=== PATIENT | female | born 1950 | race Caucasian/White ===

== ENCOUNTER → 2021-02-16 10:21 | Outpatient (CLI) | payer MEDICARE, OTHER, SELFPAY ==
[2021-02-16 11:57] LABS: Calcium 9.2 mg/dL (8.4-10.2)
== END ==
PROVIDERS: PCP Family Medicine; Referring Provider Family Medicine; Visit Provider Family Medicine
DX: M81.0 Age-related osteoporosis without current pathological fracture (principal)
CPT/HCPCS: 36415; 82310

== ENCOUNTER → 2022-09-08 16:22 | Outpatient (CLI) | payer MEDICARE, OTHER, SELFPAY ==
[2022-09-08 17:41] LABS: BUN Creatinine Ratio 15.4 (6-22); Blood Urea Nitrogen 12 mg/dL (7-17); Calcium 9.9 mg/dL (8.4-10.2); Carbon Dioxide 27 mmol/L (22-32); Chloride 100 mmol/L (98-107); Estimated Glomerular Filt Rate > 60 mL/min (>60); Glucose 104 mg/dL (80-110); HEMOLYSIS < 15 (0-50); Phosphorous 4.4 mg/dL (2.8-4.1); Potassium 4.4 mmol/L (3.4-5.1); Sodium 139 mmol/L (137-145)
[2022-09-12 07:28] LABS: Parathyroid Hormone, Intact 24 pg/mL (15-65)
[2022-09-15 15:16] LABS: Albumin 4.2 g/dL (3.5-5.0)
== END ==
PROVIDERS: PCP Student in an Organized Health Care Education/Training Program; Referring Provider Student in an Organized Health Care Education/Training Program; Visit Provider Student in an Organized Health Care Education/Training Program
DX: E83.52 Hypercalcemia (principal)
CPT/HCPCS: 36415; 80069; 82310; 83970

== ENCOUNTER → 2023-09-03 09:54 | Outpatient (CLI) | payer MEDICARE, OTHER, SELFPAY ==
[2023-09-03 13:16] LABS: Albumin 4.1 g/dL (3.5-5.0); Blood Urea Nitrogen 15 mg/dL (7-17); Calcium 9.5 mg/dL (8.4-10.2); Carbon Dioxide 27 mmol/L (22-32); Chloride 100 mmol/L (98-107); Estimated Glomerular Filt Rate > 60 mL/min (>60); Glucose 101 mg/dL (80-110); HEMOLYSIS < 15 (0-50); Phosphorous 3.6 mg/dL (2.8-4.1); Potassium 3.7 mmol/L (3.4-5.1); Sodium 135 mmol/L (137-145)
[2023-09-03 13:27] LABS: Free T4, Direct Thyroxine 1.22 ng/dL (0.78-2.19)
[2023-09-03 13:44] LABS: Thyroid Stimulating Hormone < 0.015 uIU/mL (0.47-4.68)
[2023-09-04 20:18] LABS: Vitamin D 25 Hydroxy (D3) 38.2 ng/mL (30.0-100.0)
== END ==
LOC: LAB 10:03
PROVIDERS: PCP Student in an Organized Health Care Education/Training Program; Referring Provider Student in an Organized Health Care Education/Training Program; Visit Provider Student in an Organized Health Care Education/Training Program
DX: M81.0 Age-related osteoporosis without current pathological fracture (principal); R93.89 Abnormal findings on diagnostic imaging of other specified body structures
CPT/HCPCS: 36415; 80069; 82306; 84439; 84443

== ENCOUNTER 2023-12-24 16:06 | Inpatient (IN) | payer MEDICARE, OTHER, SELFPAY ==
[2023-12-24 16:13] VITALS: BP 171/79; PULSE 79; RESP 18; TEMP 36.7; O2SAT 92; BMI 30.3
--- NOTE | 2023-12-24 17:12 | DI.RAD.S_ITS ---
PROCEDURE: XR SACRUM COCCYX MIN 2V INDICATIONS: fall TECHNIQUE: 3 views of the sacrum and coccyx acquired. COMPARISON: [facility], CR, XR LUMBAR SPINE 2-3V, 12/24/2023, 17:30. FINDINGS: Bones: Mild sacroiliac degenerative changes. No acute displaced fracture or dislocation. Soft tissues: Pelvic calcifications are probably phleboliths. L5 on S1 anterolisthesis is partially seen, probably chronic. IMPRESSION: Mild sacroiliac degenerative changes. No displaced fracture or dislocation. If there is high concern for occult injury, consider repeat radiography or cross-sectional imaging. Dictated by: Pawan Shin M.D. on 12/24/2023 at 18:16 Approved by: Pawan Shin M.D. on 12/24/2023 at 18:17
--- NOTE | 2023-12-24 17:12 | DI.RAD.S_ITS ---
PROCEDURE: XR LUMBAR SPINE 2-3V INDICATIONS: fall TECHNIQUE: 3 views of the lumbar spine were acquired. COMPARISON: [facility], CT, CT CHEST WITHOUT CONTRAST, 10/05/2022, 14:18. [facility], CR, XR LUMBAR SPINAL PUNCTURE DIAGNOSTIC, 04/19/2023, 16:33. FINDINGS: Bones: New burst fracture of the L1 vertebral body with greater than 50% height loss. Mild degenerative changes seen elsewhere. L5 on S1 anterolisthesis and possible pars defects. Soft tissues: Cholecystectomy clips. Large fecal loading. IMPRESSION: L1 burst fracture with greater 50% height loss. Likely chronic L5 on S1 anterolisthesis. Dictated by: Pawan Shin M.D. on 12/24/2023 at 18:14 Approved by: Pawan Shin M.D. on 12/24/2023 at 18:16
--- NOTE | 2023-12-24 17:17 | DI.RAD.S_ITS ---
PROCEDURE: XR CHEST 2V INDICATIONS: Possible aspiration TECHNIQUE: 2 views of the chest were acquired. COMPARISON: [facility], CR, XR CHEST 2 VIEWS, 09/22/2022, 12:13. FINDINGS: Surgical changes and devices: None. Lungs and pleura: Moderate right infrahilar opacity. Underlying fibrotic and reticular changes. No pleural effusions. Low lung volumes. Mediastinum: Cardiomediastinal contours unchanged. Bones and chest wall: Degenerative findings. IMPRESSION: Moderate right infrahilar opacity likely aspiration or infection. Underlying fibrotic and reticular changes seen in the lungs. Low lung volumes. Consider future imaging surveillance Dictated by: Pawan Shin M.D. on 12/24/2023 at 18:17 Approved by: Pawan Shin M.D. on 12/24/2023 at 18:18
--- NOTE | 2023-12-24 17:18 | DI.CT.S_ITS ---
PROCEDURE: CT HEAD/BRAIN WO CON INDICATIONS: unwitnessed fall TECHNIQUE: Noncontrast 4.5 mm thick angled axial sections acquired from the foramen magnum to the vertex, with coronal and sagittal reformats. For radiation dose reduction, the following was used: automated exposure control, adjustment of mA and/or kV according to patient size. COMPARISON: [facility], CT, CT HEAD WITHOUT CONTRAST, 06/16/2019, 15:48. FINDINGS: Image quality: Diagnostic CSF spaces: Basal cisterns are patent. Lateral ventricles are symmetric. Volume: Vascular calcifications. Periventricular white matter disease is commonly seen with chronic microangiopathy. Volume loss is present. These findings are moderate Brain: Basal ganglia and upper brainstem calcifications appear chronic. Hyperostosis versus calcified extra-axial lesion contiguous with the calvarium again seen in the left frontal region, similar to prior. No acute hemorrhage. No gross loss of krueger-white differentiation. Craniofacial structures: Empty sella incidentally noted. Right calvarial postsurgical changes. Small paranasal sinus right frontal mucous cyst. IMPRESSION: No acute intracranial abnormality. Likely nonacute findings above. Dictated by: Pawan Shin M.D. on 12/24/2023 at 17:58 Approved by: Pawan Shin M.D. on 12/24/2023 at 18:00
--- NOTE | 2023-12-24 18:16 | ED_ITS ---
HPI - Fall <Ro Welsh PA-C - Last Filed: 12/24/23 19:04> General Chief Complaint: Fall Stated Complaint: GLF last sunday back injury, no thinners Time Seen by Provider: 12/24/23 16:27 History of Present Illness HPI Narrative: 73-year-old female with a complicated past medical history including hyperparathyroidism, hypothyroidism, diabetes insipidus, adrenal insufficiency, vitamin-D osteoporosis, hypercalcemia, hypergammaglobulinumia, sarcoidosis, craniopharyngioma, status post radiation, seizures, chronic insomnia brought in by to the ED for multiple falls over the last week. Patient has suffered the 1st fall last week when she was walking without her walker from the table to the kitchen sink. This fall was witnessed, patient endorsed lower back pain after this fall. Patient has been complaining of the lower back pain for the entire last week. Patient was seen by her PCP 5 days ago, was told to seek further imaging and workup if her symptoms did not improve. Patient suffered 2 other falls in the last 2 days, 1 of which was unwitnessed. Patient was not down for more than 30 minutes after 1 of the unwitnessed falls. History was obtained from patient's , patient is able to provide little history other than that her lower back hurts. Patient's has been giving her ibuprofen and Tylenol for the back pain. Last dose of pain medication was just prior to arrival to the ED. Patient received Tylenol and ibuprofen. No fever, chills, vomiting, cough. Patient's does say that patient has frequent choking or swallowing issues when her food is not cut into small enough pieces or if she eats too fast. He does endorse that she appear to almost vomit 2 days ago but was able to swallow and prevented. He denies that she has a had aspiration or pneumonia from it. Related Data Home Medications Medication Instructions Recorded Confirmed aspirin 81 mg tablet,delayed 81 mg PO DAILY 12/14/20 12/24/23 release calcium carbonate 600 mg-vitamin cap PO BID 12/14/20 03/15/22 D3 10 mcg (400 unit) capsule pantoprazole 40 mg tablet,delayed 40 mg PO DAILY 12/14/20 12/24/23 release potassium chloride 10 mEq 10 meq PO DAILY 12/14/20 12/24/23 capsule,extended release ascorbic acid (vitamin C) 1,000 mg 500 mg PO DAILY 03/15/22 12/24/23 tablet hydrocortisone sod succinate 100 200 mg IM Q12H 03/15/22 03/15/22 mg/2 mL solution for injection desmopressin 0.1 mg tablet PO 12/24/23 desmopressin 0.2 mg tablet 0.2 mg PO 3XD 12/24/23 12/24/23 hyoscyamine sulfate 0.125 mg tablet 0.125 mg PO BID 12/24/23 12/24/23 Previous Rx's Medication Instructions Recorded hydrocortisone 10 mg tablet See Rx Instructions PO .COMPLEX 01/20/21 #225 tabs simvastatin 20 mg tablet See Rx Instructions .Route 06/15/21 .COMPLEX #90 tabs levothyroxine 75 mcg tablet See Rx Instructions .Route 07/08/21 .COMPLEX #30 tabs desmopressin 0.2 mg tablet See Rx Instructions .Route 09/19/21 .COMPLEX #270 tabs Allergies Allergy/AdvReac Type Severity Reaction Status Date / Time phenobarbital AdvReac Unknown Rash Verified 03/15/22 14:41 Review of Systems <Ro Welsh PA-C - Last Filed: 12/24/23 19:04> Review of Systems Narrative: ROS per HPI, obtained from patient's ROS Unobtainable: Unobtainable due to medical condition Patient History <Ro Welsh PA-C - Last Filed: 12/24/23 19:04> Medical History Thoracic region somatic dysfunction Cervical somatic dysfunction Stiff back Stiff neck Cranial somatic dysfunction Chronic cough (~2011) Stroke (~2014) Osteoporosis Foot pain (~2019) Measles Chicken pox Hearing loss (~1999) History of urinary incontinence (~2016) Fecal incontinence (~2018) Hemorrhoid Balance problem Hypothyroidism (acquired) (~2000) Diabetes insipidus (~1999) Nocturnal hypoxemia Sarcoidosis (~2011) Surgical History History of craniotomy Anesthesia History of parathyroidectomy (~2017) History of cholecystectomy (~2014) History of partial hysterectomy (~1972) Cataracts, bilateral (~2019) History of craniopharyngioma (~1988) Family History Father Diabetes mellitus History of heart disease Hypertension History of kidney problems Mother Cancer Mental health problem Stroke Sister Hypertension Grandmother History of heart disease Mental health problem Brother Mental health problem Social History Smoking Status: Former smoker alcohol intake: never substance use type: does not use Smoking Status: Former smoker alcohol intake frequency: other Substance Use Type: does not use Exam <Ro Welsh PA-C - Last Filed: 12/24/23 19:04> Narrative Exam Narrative: Const General:?cooperative, healthy appearing and comfortable [place] Head:?normal to inspection Ears:?hearing grossly normal bilaterally Nose:?external nose normal Face and sinus:?normal facial exam and sinuses nontender Mouth:?oral mucosae normal Throat:?posterior oropharynx normal Eyes General:?appearance normal, both eyes and all related structures Neck Neck:?normal visual inspection and no lymphadenopathy noted Resp Effort & Inspection:?normal respiratory effort Auscultation:?clear to auscultation bilaterally Cardio Rate:?regular rate Rhythm:?regular rhythm Musculoskeletal There is a abrasion, bruised to lumbar midline region. Neuro General:?patient alert, patient awake and patient oriented x3 Initial Vital Signs Initial Vital Signs: Vital Signs Temperature 98.1 F 12/24/23 16:13 Pulse Rate 79 12/24/23 16:13 Respiratory Rate 18 12/24/23 16:13 Blood Pressure 171/79 H 12/24/23 16:13 Pulse Oximetry 92 12/24/23 16:13 Oxygen Delivery Method Room Air 12/24/23 16:13 <Giovanni Sanchez DO - Last Filed: 12/25/23 00:19> Initial Vital Signs Initial Vital Signs: Vital Signs Temperature 98.1 F 12/24/23 16:13 Pulse Rate 79 12/24/23 16:13 Respiratory Rate 18 12/24/23 16:13 Blood Pressure 171/79 H 12/24/23 16:13 Pulse Oximetry 92 12/24/23 16:13 Oxygen Delivery Method Room Air 12/24/23 16:13 Course <Ro Welsh PA-C - Last Filed: 12/24/23 19:04> Orders Ordered: ED Orders 12/24/23 17:12 XR lumbar spine 2-3V Stat XR sacrum coccyx min 2V Stat 12/24/23 17:17 XR chest 2V Stat EKG-12 Lead Stat 12/24/23 17:18 CT head/brain wo con Stat 12/24/23 18:04 CBC Auto Diff [Complete Blood Count AUTO DIFF] Stat CMP [Comprehensive Metabolic Panel] Stat Lactate (Lactic Acid) Stat Lipase Stat Magnesium Stat Phosphorous Stat Troponin & CK Cardiac Panel Stat 12/24/23 18:25 Urinalysis and Microscopic Stat Urine Culture Stat 12/24/23 20:44 CT lumbar spine wo con Stat CT thoracic spine wo con Stat 12/24/23 20:45 Consult to Orthopedic Surgery Stat Acetaminophen (Acetaminophen 325 Mg Tablet) 650 mg PO Q6H PRN PRN Reason: Fever/Mild Pain (1-3) Hydrocodone Bitart/Acetaminophen (Hydrocodone/Acet 5/325 Tablet) 1 tab PO Q4H PRN PRN Reason: Pain, Moderate (4-6) Atorvastatin Calcium (Atorvastatin 20 Mg Tablet) 10 mg PO BEDTIME [facility] Calcium Carbonate (Calcium Carbonate 500 Mg Tab) 1,000 mg PO Q4HR PRN PRN Reason: Dyspepsia Enoxaparin Sodium (Enoxaparin 40 Mg/0.4 Ml Syringe) 40 mg SUBCUT DAILY [facility] Hydrocortisone (Hydrocortisone 10 Mg Tablet) 10 mg PO DAILY [facility] Hydrocortisone (Hydrocortisone 10 Mg Tablet) 5 mg PO BEDTIME [facility] Potassium Chloride 40 meq/ (Sodium Chloride) 1,020 mls @ 100 mls/hr IV CONT [facility] Levothyroxine Sodium (Levothyroxine 75 Mcg Tablet) 75 mcg PO QACBREAK [facility] Morphine Sulfate (Morphine 4 Mg/Ml Inj) 3 mg IV Q2HR [facility] Naloxone HCl (Naloxone 0.4 Mg/Ml Vial) 0.2 mg IV Q2MIN PRN PRN Reason: Opiate Reversal Non-Formulary Medication (Desmopressin) 0.2 mg PO 3XD [facility] Ondansetron HCl (Ondansetron 4 Mg/2 Ml Inj) 4 mg IV Q8HR PRN PRN Reason: Nausea And Vomiting Pantoprazole Sodium (Pantoprazole Dr 20 Mg Tablet) 20 mg PO 0600 [place] Pantoprazole Sodium (Pantoprazole Dr 40 Mg Tablet) 40 mg PO DAILY [facility] Potassium Chloride (Potassium Chloride 10 Meq Tab) 10 meq PO DAILY [facility] Sennosides (Sennosides 8.6 Mg Tablet) 17.2 mg PO BEDTIME M[facility] Vital Signs Vital signs: Vital Signs - 8 hr 12/24/23 19:16 Temperature 98.1 F Pulse Rate 72 Respiratory Rate 18 Blood Pressure 172/83 H Pulse Oximetry 95 Oxygen Delivery Method Room Air <Giovanni Sanchez, - Last Filed: 12/25/23 00:19> Orders Ordered: ED Orders 12/24/23 17:12 XR lumbar spine 2-3V Stat XR sacrum coccyx min 2V Stat 12/24/23 17:17 XR chest 2V Stat EKG-12 Lead Stat 12/24/23 17:18 CT head/brain wo con Stat 12/24/23 18:04 CBC Auto Diff [Complete Blood Count AUTO DIFF] Stat CMP [Comprehensive Metabolic Panel] Stat Lactate (Lactic Acid) Stat Lipase Stat Magnesium Stat Phosphorous Stat Troponin & CK Cardiac Panel Stat 12/24/23 18:25 Urinalysis and Microscopic Stat Urine Culture Stat 12/24/23 20:44 CT lumbar spine wo con Stat CT thoracic spine wo con Stat 12/24/23 20:45 Consult to Orthopedic Surgery Stat Acetaminophen (Acetaminophen 325 Mg Tablet) 650 mg PO Q6H PRN PRN Reason: Fever/Mild Pain (1-3) Hydrocodone Bitart/Acetaminophen (Hydrocodone/Acet 5/325 Tablet) 1 tab PO Q4H PRN PRN Reason: Pain, Moderate (4-6) Atorvastatin Calcium (Atorvastatin 20 Mg Tablet) 10 mg PO BEDTIME [facility] Calcium Carbonate (Calcium Carbonate 500 Mg Tab) 1,000 mg PO Q4HR PRN PRN Reason: Dyspepsia Enoxaparin Sodium (Enoxaparin 40 Mg/0.4 Ml Syringe) 40 mg SUBCUT DAILY [facility] Hydrocortisone (Hydrocortisone 10 Mg Tablet) 10 mg PO DAILY [facility] Hydrocortisone (Hydrocortisone 10 Mg Tablet) 5 mg PO BEDTIME [facility] Potassium Chloride 40 meq/ (Sodium Chloride) 1,020 mls @ 100 mls/hr IV CONT [facility] Levothyroxine Sodium (Levothyroxine 75 Mcg Tablet) 75 mcg PO QACBREAK [facility] Morphine Sulfate (Morphine 4 Mg/Ml Inj) 3 mg IV Q2HR [facility] Naloxone HCl (Naloxone 0.4 Mg/Ml Vial) 0.2 mg IV Q2MIN PRN PRN Reason: Opiate Reversal Non-Formulary Medication (Desmopressin) 0.2 mg PO 3XD [facility] Ondansetron HCl (Ondansetron 4 Mg/2 Ml Inj) 4 mg IV Q8HR PRN PRN Reason: Nausea And Vomiting Pantoprazole Sodium (Pantoprazole Dr 20 Mg Tablet) 20 mg PO 0600 [facility] Pantoprazole Sodium (Pantoprazole Dr 40 Mg Tablet) 40 mg PO DAILY [facility] Potassium Chloride (Potassium Chloride 10 Meq Tab) 10 meq PO DAILY [facility] Sennosides (Sennosides 8.6 Mg Tablet) 17.2 mg PO BEDTIME [facility] Vital Signs Vital signs: Vital Signs - 8 hr 12/24/23 19:16 Temperature 98.1 F Pulse Rate 72 Respiratory Rate 18 Blood Pressure 172/83 H Pulse Oximetry 95 Oxygen Delivery Method Room Air MDM - Fall <Ro Welsh PA-C - Last Filed: 12/24/23 19:04> Lab Data 12/24/23 18:04 12/24/23 18:04 Labs: Lab Results 12/24/23 12/24/23 Range/Units 18:04 18:25 WBC 9.7 (4.5-11.0) X10^3/uL RBC 3.95 L (4.0-5.2) X10^6/uL Hgb 12.8 (12.0-16.0) g/dL Hct 37.5 (36-46) % MCV 94.9 (80-100) fL MCH 32.4 (26-34) PG MCHC 34.2 (30-36) % RDW 13.1 (11.6-14.8) % Plt Count 251 (150-400) X10^3/uL Neut % (Auto) 72.6 (50-75) % Lymph % (Auto) 15.4 L (25-40) % [place] % (Auto) 9.6 (3-14) % Eos % (Auto) 1.5 L (2-4) % Baso % (Auto) 0.9 (0-2) % Neut # (Auto) 7000 (9080-8008) /uL Lymph # (Auto) 1500 (9213-3594) /uL [place] # (Auto) 900 (0-900) /uL Eos # (Auto) 100 (0-450) /uL Baso # (Auto) 100 (0-100) /uL Sodium 129 L (137-145) mmol/L Potassium 4.6 (3.4-5.1) mmol/L Chloride 99 (98-107) mmol/L Carbon Dioxide 24 (22-32) mmol/L BUN 17 (7-17) mg/dL Creatinine 0.72 (0.52-1.04) mg/dL Estimated GFR > 60 (>60) mL/min BUN/Creatinine Ratio 23.6 H (6-22) Glucose 109 (80-110) mg/dL Lactate 0.9 (0.7-2.1) mmol/L Calcium 9.1 (8.4-10.2) mg/dL Phosphorus 3.3 (2.8-4.1) mg/dL Magnesium 2.1 (1.6-2.3) mg/dL Total Bilirubin 1.0 (0.2-1.3) mg/dL AST 31 (14-36) IU/L ALT 15 (<35) IU/L Alkaline Phosphatase 53 (38-126) U/L Total Creatine Kinase 61 (30-135) U/L Troponin I < 0.012 (0.01-0.034) ng/mL Total Protein 6.9 (6.3-8.2) g/dL Albumin 4.1 (3.5-5.0) g/dL Globulin 2.8 (1.7-4.1) g/dL Albumin/Globulin Ratio 1.5 (1.0-2.8) Lipase 106 (23-300) U/L Urine Color Yellow Urine Appearance Sl cloudy Urine pH 6.0 (4.5-8.0) Ur Specific [place] 1.025 (1.000-1.035) Urine Protein Negative (Negative) Urine Glucose (UA) Negative (Negative) g/dL Urine Ketones Trace H (NEGATIVE) Urine Occult Blood Negative (Negative) Urine Nitrate Negative (Negative) Urine Bilirubin Negative (NEGATIVE) Urine Urobilinogen 0.2 (0.2) E.U./dL Ur Leukocyte Esterase Negative (NEGATIVE) Urine RBC None seen (0-5/HPF) Urine WBC 1-5/hpf (0-5/HPF) Ur Squamous Epith Cells 5-10 /hpf H (0-5/HPF) Ur Transition Epith Cell 1-5/hpf (0-5/HPF) Ur Renal Epithelial Cell 0-1/hpf (0-1/HPF) Urine Bacteria Occasional (0-1) (None) Ur Culture Indicated? Specimen cultured Vol Urine Centrifuged 10ml (spun) MDM Narrative Medical decision making narrative: 73-year-old female with a complicated past medical history including hyperparathyroidism, hypothyroidism, diabetes insipidus, adrenal insufficiency, vitamin-D osteoporosis, hypercalcemia, hypergammaglobulinumia, sarcoidosis, craniopharyngioma, status post radiation, seizures, chronic insomnia brought in by to the ED for multiple falls over the last week. Given patient's complicated medical history and increase in frequency of falls, will workup for organic causes. Will obtain EKG, chest x-ray, troponin, labs, UA, CT head, lumbar and sacrum/coccyx x-ray. Will reassess. X-ray shows L1 burst fracture with greater than 50% height loss. From discussion with the radiologist over the phone, it appears that the fracture is most likely acute, given that a prior did not have the fracture. Chest x-ray shows a moderate right infrahilar opacity likely aspiration or infection. Labs with low-sodium at 129. labs otherwise WNL. Urine is still pending. Patient will likely need admission. Patient is handed off to Dr. Sanchez at this time. <Giovanni Sanchez, DO - Last Filed: 12/25/23 00:19> Lab Data Labs: Lab Results 12/24/23 12/24/23 Range/Units 18:04 18:25 WBC 9.7 (4.5-11.0) X10^3/uL RBC 3.95 L (4.0-5.2) X10^6/uL Hgb 12.8 (12.0-16.0) g/dL Hct 37.5 (36-46) % MCV 94.9 (80-100) fL MCH 32.4 (26-34) PG MCHC 34.2 (30-36) % RDW 13.1 (11.6-14.8) % Plt Count 251 (150-400) X10^3/uL Neut % (Auto) 72.6 (50-75) % Lymph % (Auto) 15.4 L (25-40) % [place] % (Auto) 9.6 (3-14) % Eos % (Auto) 1.5 L (2-4) % Baso % (Auto) 0.9 (0-2) % Neut # (Auto) 7000 (1796-2351) /uL Lymph # (Auto) 1500 (2853-5408) /uL [place] # (Auto) 900 (0-900) /uL Eos # (Auto) 100 (0-450) /uL Baso # (Auto) 100 (0-100) /uL Sodium 129 L (137-145) mmol/L Potassium 4.6 (3.4-5.1) mmol/L Chloride 99 (98-107) mmol/L Carbon Dioxide 24 (22-32) mmol/L BUN 17 (7-17) mg/dL Creatinine 0.72 (0.52-1.04) mg/dL Estimated GFR > 60 (>60) mL/min BUN/Creatinine Ratio 23.6 H (6-22) Glucose 109 (80-110) mg/dL Lactate 0.9 (0.7-2.1) mmol/L Calcium 9.1 (8.4-10.2) mg/dL Phosphorus 3.3 (2.8-4.1) mg/dL Magnesium 2.1 (1.6-2.3) mg/dL Total Bilirubin 1.0 (0.2-1.3) mg/dL AST 31 (14-36) IU/L ALT 15 (<35) IU/L Alkaline Phosphatase 53 (38-126) U/L Total Creatine Kinase 61 (30-135) U/L Troponin I < 0.012 (0.01-0.034) ng/mL Total Protein 6.9 (6.3-8.2) g/dL Albumin 4.1 (3.5-5.0) g/dL Globulin 2.8 (1.7-4.1) g/dL Albumin/Globulin Ratio 1.5 (1.0-2.8) Lipase 106 (23-300) U/L Urine Color Yellow Urine Appearance Sl cloudy Urine pH 6.0 (4.5-8.0) Ur Specific [place] 1.025 (1.000-1.035) Urine Protein Negative (Negative) Urine Glucose (UA) Negative (Negative) g/dL Urine Ketones Trace H (NEGATIVE) Urine Occult Blood Negative (Negative) Urine Nitrate Negative (Negative) Urine Bilirubin Negative (NEGATIVE) Urine Urobilinogen 0.2 (0.2) E.U./dL Ur Leukocyte Esterase Negative (NEGATIVE) Urine RBC None seen (0-5/HPF) Urine WBC 1-5/hpf (0-5/HPF) Ur Squamous Epith Cells 5-10 /hpf H (0-5/HPF) Ur Transition Epith Cell 1-5/hpf (0-5/HPF) Ur Renal Epithelial Cell 0-1/hpf (0-1/HPF) Urine Bacteria Occasional (0-1) (None) Ur Culture Indicated? Specimen cultured Vol Urine Centrifuged 10ml (spun) MDM Narrative Medical decision making narrative: 73-year-old female with a complicated past medical history including hyperparathyroidism, hypothyroidism, diabetes insipidus, adrenal insufficiency, vitamin-D osteoporosis, hypercalcemia, hypergammaglobulinumia, sarcoidosis, craniopharyngioma, status post radiation, seizures, chronic insomnia brought in by to the ED for multiple falls over the last week. Given patient's complicated medical history and increase in frequency of falls, will workup for organic causes. Will obtain EKG, chest x-ray, troponin, labs, UA, CT head, lumbar and sacrum/coccyx x-ray. Will reassess. X-ray shows L1 burst fracture with greater than 50% height loss. From discussion with the radiologist over the phone, it appears that the fracture is most likely acute, given that a prior did not have the fracture. Chest x-ray shows a moderate right infrahilar opacity likely aspiration or infection. Labs with low-sodium at 129. labs otherwise WNL. Urine is still pending. Patient will likely need admission. Patient is handed off to Dr. Sanchez at this time. Dr sanchez: Received turned over. Review patient's history and physical. Patient does have an L1 burst fracture and she is tender over this area. Patient had a difficult time walking around because of back discomfort. She has no focal neurologic deficits noted in her lower extremities. Discussed the case with Dr. Mendoza who recommended CT scan of the thoracic lumbar spine which was ordered. Will admit to the hospital for further evaluation and treatment. Chest x-ray also shows some concern for aspiration. This may not necessarily be new findings per family at bedside. She has not hypoxic. Discussed the case with Dr. Nguyen who is the hospitalist on-call who will admit. Discussed the need for admission with the patient's family. They expressed understanding and agreement Discharge Plan Departure Patient Disposition: Admitted as Observation Clinical Impression: Closed L1 vertebral fracture Admit Date/Time: 12/24/23 21:15 Admit Provider: Giovanni Nguyen
[2023-12-24 18:17] LABS: Add Manual Diff / Slide Review NO; Basophils Absolute Auto 100 /uL (0-100); Basophils Percent Auto 0.9 % (0-2); Eosinophils Absolute Auto 100 /uL (0-450); Eosinophils Percent Auto 1.5 % (2-4); Hematocrit 37.5 % (36-46); Hemoglobin 12.8 g/dL (12.0-16.0); Lymphocytes Absolute Auto 1500 /uL (1100-4500); Lymphocytes Percent Auto 15.4 % (25-40); Mean Corpuscular HGB Conc 34.2 % (30-36); Mean Corpuscular Hemoglobin 32.4 PG (26-34); Mean Corpuscular Volume 94.9 fL (80-100); Monocytes Absolute Auto 900 /uL (0-900); Monocytes Percent Auto 9.6 % (3-14); Neutrophils Absolute Auto 7000 /uL (1500-7000); Neutrophils Percent Auto 72.6 % (50-75); Platelet Count 251 X10^3/uL (150-400); Red Blood Cell Count 3.95 X10^6/uL (4.0-5.2); Red Cell Distribution Width 13.1 % (11.6-14.8); White Blood Cell Count 9.7 X10^3/uL (4.5-11.0)
[2023-12-24 18:36] LABS: Lactate (Lactic Acid) 0.9 mmol/L (0.7-2.1)
[2023-12-24 18:38] LABS: Alanine Aminotransferase 15 IU/L (<35); Albumin 4.1 g/dL (3.5-5.0); Albumin Globulin Ratio 1.5 (1.0-2.8); Alkaline Phosphatase 53 U/L (38-126); Aspartate Aminotransferase 31 IU/L (14-36); BUN Creatinine Ratio 23.6 (6-22); Blood Urea Nitrogen 17 mg/dL (7-17); Calcium 9.1 mg/dL (8.4-10.2); Carbon Dioxide 24 mmol/L (22-32); Chloride 99 mmol/L (98-107); Creatine Kinase 61 U/L (30-135); Estimated Glomerular Filt Rate > 60 mL/min (>60); Globulin 2.8 g/dL (1.7-4.1); Glucose 109 mg/dL (80-110); HEMOLYSIS < 15 (0-50); Lipase 106 U/L (23-300); Magnesium 2.1 mg/dL (1.6-2.3); Potassium 4.6 mmol/L (3.4-5.1); Sodium 129 mmol/L (137-145); Total Protein 6.9 g/dL (6.3-8.2)
[2023-12-24 18:39] LABS: Phosphorous 3.3 mg/dL (2.8-4.1)
[2023-12-24 18:50] LABS: Troponin I < 0.012 ng/mL (0.01-0.034)
[2023-12-24 18:58] LABS: Appearance Urine UA SL CLOUDY; Bilirubin Urine UA NEGATIVE (NEGATIVE); Color Urine UA YELLOW; Glucose Urine UA NEGATIVE (Negative); Ketones Urine UA TRACE (NEGATIVE); Leukocyte Esterase Urine UA NEGATIVE (NEGATIVE); Nitrite Urine UA NEGATIVE (Negative); Occult Blood Urine UA NEGATIVE (Negative); Protein Urine UA NEGATIVE (Negative); Specific Gravity Urine UA 1.025 (1.000-1.035); Urobilinogen Urine UA 0.2 E.U./dL (0.2)
[2023-12-24 19:08] LABS: RBC Urine None Seen (0-5/HPF); Urine Volume 10mL (spun); WBC Urine 1-5/HPF (0-5/HPF)
[2023-12-24 19:09] LABS: Bacteria Urine Occasional (0-1); Culture Indicated Urine Specimen Cultured; Renal Epithelial Cells Urine 0-1/HPF (0-1/HPF); Squamous Epithelial Cell Urine 5-10 /HPF (0-5/HPF); Transitional Epi Cells Urine 1-5/HPF (0-5/HPF)
[2023-12-24 19:16] VITALS: BP 172/83; PULSE 72; RESP 18; TEMP 36.7; O2SAT 95
--- NOTE | 2023-12-24 20:43 | PC.NURSE ---
STUDIO TECHNICIAN note: Ambulated patient at 1999, patient got up and was able to walk to room 10, keeping her oxygen saturation at 97% on room air. She walked fine. The entire time though she kept saying I don't like walking and I don't want to walk. I tried to explain that we needed to walk. But patient wasn't happy about it. Patient was very hard of hearing and hard to follow direction because of that. Walked with walker.
--- NOTE | 2023-12-24 20:44 | DI.CT.S_ITS ---
PROCEDURE: CT LUMBAR SPINE WO CON INDICATIONS: L1 burst fracture TECHNIQUE: Noncontrast 3 mm thick sections acquired from the T12 level to the sacrum. Sagittal and coronal reformats were constructed. For radiation dose reduction, the following was used: automated exposure control. COMPARISON: [facility], CR, XR LUMBAR SPINE 2-3V, 12/24/2023, 17:30. [facility], CR, XR LUMBAR SPINAL PUNCTURE DIAGNOSTIC, 04/19/2023, 16:33. FINDINGS: Image quality: Excellent. Bones: There is a 68% compression deformity at L1. Fracture lucencies are present in the anterior middle and posterior 3rd of the vertebral body. There is appearance fracture lucency extending in to the distal aspect the right pedicle. There is mild appearance of retropulsion the posterior aspect of the superior vertebral endplate causing moderate spinal stenosis. There is also compromise of the right lateral recess secondary to fracture fragment. Grade 1/2 anterolisthesis L5 on S1 with bilateral L5 pars defect. Multilevel disc bulges are present the lumbar spine. Multilevel foraminal narrowing is present throughout the lumbar spine severe bilaterally at L5-S1 most prominent on the left with flattening of the L5 nerve roots. Multilevel facet and ligamentum flavum hypertrophy are present. Soft tissues: No retroperitoneal masses or hematomas. Visualized aorta is normal in caliber. IMPRESSION: 60% compression deformity at L1 with fracture lucencies in the anterior, middle and posterior thirds of the vertebral body. There is moderate spinal stenosis secondary to retropulsion the posterior aspect of the superior endplate as well as causing compromise of the right lateral recess. Dictated by: Kristen Davidson M.D. on 12/24/2023 at 21:29 Approved by: Kristen Davidson M.D. on 12/24/2023 at 21:36
--- NOTE | 2023-12-24 20:44 | DI.CT.S_ITS ---
PROCEDURE: CT THORACIC SPINE WO CON INDICATIONS: L1 burst fracture TECHNIQUE: Noncontrast 3 mm thick sections acquired through the region of interest in the thoracic spine. Sagittal and coronal reformats were then constructed. For radiation dose reduction, the following was used: automated exposure control. COMPARISON: [facility], CT, CT LUMBAR SPINE WO CON, 12/24/2023, 20:49. FINDINGS: Image quality: Excellent. Bones: There is normal overall bony alignment. No acute vertebral body compression fractures. No suspicious sclerotic or lytic bony lesions. Central spinal canal is of normal overall caliber. Multilevel degenerative disc space narrowing. Soft tissues: No paravertebral masses or hematomas. Visualized posteromedial lungs appear clear. Mediastinal calcified lymph nodes are present related to prior granulomatous exposure. IMPRESSION: Multilevel degenerative changes visualized fracture. Dictated by: Kristen Davidson M.D. on 12/24/2023 at 21:27 Approved by: Kristen Davidson M.D. on 12/24/2023 at 21:29
--- NOTE | 2023-12-24 20:46 | PM.PN.1 ---
Subjective Subjective Interval history: Consulted by ED this evening regarding imaging findings. Xrays demonstrate an L2 burst fracture with some retropulsion but no focal kyphosis. Per report from ED physician, patient is neuro intact without any discernable sensorimotor deficits although exam somewhat limited by altered mental status. Preliminary plan is to obtain a CT scan this evening and plan for nonoperative treatment. Patient should receive a TLSO and be made WBAT and ambulate with PT. Fine to begin PT before the brace has arrived if PT is ready to mobilize before TLSO has been fitted. Likely to be admitted to medical service. Exam Vital Signs (past 8 hours): - 12/24/23 16:13 12/24/23 19:16 Temperature 98.1 F 98.1 F Pulse Rate 79 72 Respiratory Rate 18 18 Blood Pressure 171/79 H 172/83 H Pulse Oximetry 92 95 Oxygen Delivery Method Room Air Room Air Oxygen Delivery Method Room Air Objective Labs 12/24/23 18:04 12/24/23 18:04 Labs: Laboratory Results - last 24 hr 12/24/23 12/24/23 18:04 18:25 WBC 9.7 RBC 3.95 L Hgb 12.8 Hct 37.5 MCV 94.9 MCH 32.4 MCHC 34.2 RDW 13.1 Plt Count 251 Neut % (Auto) 72.6 Lymph % (Auto) 15.4 L [place] % (Auto) 9.6 Eos % (Auto) 1.5 L Baso % (Auto) 0.9 Neut # (Auto) 7000 Lymph # (Auto) 1500 [place] # (Auto) 900 Eos # (Auto) 100 Baso # (Auto) 100 Sodium 129 L Potassium 4.6 Chloride 99 Carbon Dioxide 24 BUN 17 Creatinine 0.72 Estimated GFR > 60 BUN/Creatinine Ratio 23.6 H Glucose 109 Lactate 0.9 Calcium 9.1 Phosphorus 3.3 Magnesium 2.1 Total Bilirubin 1.0 AST 31 ALT 15 Alkaline Phosphatase 53 Total Creatine Kinase 61 Troponin I < 0.012 Total Protein 6.9 Albumin 4.1 Globulin 2.8 Albumin/Globulin Ratio 1.5 Lipase 106 Urine Color Yellow Urine Appearance Sl cloudy Urine pH 6.0 Ur Specific [place] 1.025 Urine Protein Negative Urine Glucose (UA) Negative Urine Ketones Trace H Urine Occult Blood Negative Urine Nitrate Negative Urine Bilirubin Negative Urine Urobilinogen 0.2 Ur Leukocyte Esterase Negative Urine RBC None seen Urine WBC 1-5/hpf Ur Squamous Epith Cells 5-10 /hpf H Ur Transition Epith Cell 1-5/hpf Ur Renal Epithelial Cell 0-1/hpf Urine Bacteria Occasional (0-1) Ur Culture Indicated? Specimen cultured Vol Urine Centrifuged 10ml (spun) [facility] Medical History Thoracic region somatic dysfunction Cervical somatic dysfunction Stiff back Stiff neck Cranial somatic dysfunction Chronic cough (~2011) Stroke (~2014) Osteoporosis Foot pain (~2019) Measles Chicken pox Hearing loss (~1999) History of urinary incontinence (~2016) Fecal incontinence (~2018) Hemorrhoid Balance problem Hypothyroidism (acquired) (~2000) Diabetes insipidus (~1999) Nocturnal hypoxemia Sarcoidosis (~2011) Surgical History History of craniotomy Anesthesia History of parathyroidectomy (~2017) History of cholecystectomy (~2014) History of partial hysterectomy (~1972) Cataracts, bilateral (~2019) History of craniopharyngioma (~1988) Family History Father Diabetes mellitus History of heart disease Hypertension History of kidney problems Mother Cancer Mental health problem Stroke Sister Hypertension Grandmother History of heart disease Mental health problem Brother Mental health problem Social History Smoking Status: Former smoker alcohol intake: never substance use type: does not use
--- NOTE | 2023-12-24 21:20 | PC.NURSE ---
PACKAGING DESIGNER note: Got patient up to restroom, patient was uncooperative with care. Patient back in bed.
[2023-12-24 22:00] VITALS: PULSE 65; O2SAT 94
[2023-12-24 22:30] VITALS: PULSE 64; O2SAT 93
[2023-12-24 22:54] VITALS: BP 171/82; PULSE 66; O2SAT 96
[2023-12-24 22:55] VITALS: BMI 30.3
[2023-12-24 23:00] VITALS: PULSE 63; O2SAT 93
[2023-12-25] VITALS (16 sets, daily range): BP systolic 137–179; BP diastolic 65–100; PULSE 62–79; RESP 14–19; TEMP 36.5; O2SAT 91–97; BMI 30.3
--- NOTE | 2023-12-25 00:54 | PM.HP.1 ---
History of Present Illness History of Present Illness Date Patient Seen: 12/25/23 Time Patient Seen: 00:55 Chief complaint: GLF last sunday back injury, no thinners Narrative: The pt is a debilitated 73 yo with advanced dementia and chronic back problems with multiple surgeries who fell at home today and was unable to get up off the floor so bolivar called 911 and she was brought to the ER. She states that she falls at home about weekly despite having a front wheeled walker. She states that the pain is a 10 out of 10 during my interview but denies any pain radiating to the legs, no numbness in the legs. There was no LOC, head trauma, it was reported that she has some dysphagia but it is only when swallowing pills. [facility] Medical History Thoracic region somatic dysfunction Cervical somatic dysfunction Stiff back Stiff neck Cranial somatic dysfunction Chronic cough (~2011) Stroke (~2014) Osteoporosis Foot pain (~2019) Measles Chicken pox Hearing loss (~1999) History of urinary incontinence (~2016) Fecal incontinence (~2018) Hemorrhoid Balance problem Hypothyroidism (acquired) (~2000) Diabetes insipidus (~1999) Nocturnal hypoxemia Sarcoidosis (~2011) Surgical History History of craniotomy Anesthesia History of parathyroidectomy (~2017) History of cholecystectomy (~2014) History of partial hysterectomy (~1972) Cataracts, bilateral (~2019) History of craniopharyngioma (~1988) Family History Father Diabetes mellitus History of heart disease Hypertension History of kidney problems Mother Cancer Mental health problem Stroke Sister Hypertension Grandmother History of heart disease Mental health problem Brother Mental health problem Social History Smoking Status: Former smoker alcohol intake: never substance use type: does not use Meds Home Medications and Allergies Home Medications Medication Instructions Recorded Confirmed Type aspirin 81 mg tablet,delayed 81 mg PO DAILY 12/14/20 12/24/23 History release calcium carbonate 600 mg-vitamin cap PO BID 12/14/20 03/15/22 History D3 10 mcg (400 unit) capsule pantoprazole 40 mg tablet,delayed 40 mg PO DAILY 12/14/20 12/24/23 History release potassium chloride 10 mEq 10 meq PO DAILY 12/14/20 12/24/23 History capsule,extended release hydrocortisone 10 mg tablet See Rx Instructions PO .COMPLEX 01/20/21 12/24/23 Rx #225 tabs simvastatin 20 mg tablet See Rx Instructions .Route 06/15/21 12/24/23 Rx .COMPLEX #90 tabs levothyroxine 75 mcg tablet See Rx Instructions .Route 07/08/21 12/24/23 Rx .COMPLEX #30 tabs desmopressin 0.2 mg tablet See Rx Instructions .Route 09/19/21 12/24/23 Rx .COMPLEX #270 tabs ascorbic acid (vitamin C) 1,000 mg 500 mg PO DAILY 03/15/22 12/24/23 History tablet hydrocortisone sod succinate 100 200 mg IM Q12H 03/15/22 03/15/22 History mg/2 mL solution for injection desmopressin 0.1 mg tablet PO 12/24/23 History desmopressin 0.2 mg tablet 0.2 mg PO 3XD 12/24/23 12/24/23 History hyoscyamine sulfate 0.125 mg tablet 0.125 mg PO BID 12/24/23 12/24/23 History Allergies Allergy/AdvReac Type Severity Reaction Status Date / Time phenobarbital AdvReac Unknown Rash Verified 03/15/22 14:41 Exam Vital Signs (past 8 hours): - 12/24/23 19:16 12/24/23 22:00 12/24/23 22:30 Temperature 98.1 F Pulse Rate 72 65 64 Respiratory Rate 18 Blood Pressure 172/83 H Pulse Oximetry 95 94 93 Oxygen Delivery Method Room Air Oxygen Delivery Method Room Air Const General: cooperative, disheveled and frail appearing Resp Auscultation: clear to auscultation bilaterally Cardio Rate: tachycardic Rhythm: regular rhythm Back/Spine/Pelvis Other: severe pain in lower pack, lying on side, moving legs Objective Labs 12/24/23 18:04 12/24/23 18:04 Labs: Laboratory Results - last 24 hr 12/24/23 12/24/23 18:04 18:25 WBC 9.7 RBC 3.95 L Hgb 12.8 Hct 37.5 MCV 94.9 MCH 32.4 MCHC 34.2 RDW 13.1 Plt Count 251 Neut % (Auto) 72.6 Lymph % (Auto) 15.4 L [place] % (Auto) 9.6 Eos % (Auto) 1.5 L Baso % (Auto) 0.9 Neut # (Auto) 7000 Lymph # (Auto) 1500 [place] # (Auto) 900 Eos # (Auto) 100 Baso # (Auto) 100 Sodium 129 L Potassium 4.6 Chloride 99 Carbon Dioxide 24 BUN 17 Creatinine 0.72 Estimated GFR > 60 BUN/Creatinine Ratio 23.6 H Glucose 109 Lactate 0.9 Calcium 9.1 Phosphorus 3.3 Magnesium 2.1 Total Bilirubin 1.0 AST 31 ALT 15 Alkaline Phosphatase 53 Total Creatine Kinase 61 Troponin I < 0.012 Total Protein 6.9 Albumin 4.1 Globulin 2.8 Albumin/Globulin Ratio 1.5 Lipase 106 Urine Color Yellow Urine Appearance Sl cloudy Urine pH 6.0 Ur Specific [place] 1.025 Urine Protein Negative Urine Glucose (UA) Negative Urine Ketones Trace H Urine Occult Blood Negative Urine Nitrate Negative Urine Bilirubin Negative Urine Urobilinogen 0.2 Ur Leukocyte Esterase Negative Urine RBC None seen Urine WBC 1-5/hpf Ur Squamous Epith Cells 5-10 /hpf H Ur Transition Epith Cell 1-5/hpf Ur Renal Epithelial Cell 0-1/hpf Urine Bacteria Occasional (0-1) Ur Culture Indicated? Specimen cultured Vol Urine Centrifuged 10ml (spun) Assessment & Plan Assessment and plan (1) Closed L1 vertebral fracture: Status: Acute (2) Hypothyroidism (acquired): Status: Acute (3) Hyponatremia: Status: Acute Plan I spoke with the ER provider regarding the pt's presenting symptoms and labs and agree with the admission. The ER provider contacted our ortho marketing automation analyst, Dr. Soriano who contacted Dr. Stinson, spinal surgeon who will see the pt tomorrow in consultation. PRN pain meds available, norco and morphine as well as lidoderm patch. I reviewed the CT head, and spine, showing the L1 burst fracture of the vertebra, moderate canal stenosis because of this. No surgery is scheduled at this time, TSL brace ordered, PT/OT consulted to evaluate the pt, she will need SNF likely.
[2023-12-25] MEDS: MORPHINE 4 MG/ML INJ 3 MG IV ×2 (02:05→14:32)
[2023-12-25] MEDS: SENNOSIDES 8.6 MG TABLET 17.2 MG PO ×2 (02:05→21:18)
[2023-12-25] MEDS: SODIUM CHLORIDE 0.9% 1,000 ML 100 ML IV (02:15)
--- NOTE | 2023-12-25 04:49 | PC.NURSE ---
RV DETAILER note: Patient struggles at following directions and following cues for safe movement. Patient is very hard of hearing, and then gets frustrated at staff when we try to give her instructions. Patient currently wants IV out, take it out! I told her I can't because the doctor and RN want her to keep her IV in. She rolled her eyes at me and said take it out. Told RN November.
[2023-12-25 05:06] LABS: Add Manual Diff / Slide Review NO; Basophils Absolute Auto 100 /uL (0-100); Basophils Percent Auto 0.8 % (0-2); Eosinophils Absolute Auto 400 /uL (0-450); Eosinophils Percent Auto 3.9 % (2-4); Hematocrit 34.8 % (36-46); Lymphocytes Absolute Auto 3300 /uL (1100-4500); Lymphocytes Percent Auto 35.4 % (25-40); Mean Corpuscular HGB Conc 34.4 % (30-36); Mean Corpuscular Hemoglobin 32.2 PG (26-34); Mean Corpuscular Volume 93.6 fL (80-100); Monocytes Absolute Auto 1000 /uL (0-900); Monocytes Percent Auto 10.7 % (3-14); Neutrophils Absolute Auto 4600 /uL (1500-7000); Neutrophils Percent Auto 49.2 % (50-75); Platelet Count 244 X10^3/uL (150-400); Red Blood Cell Count 3.72 X10^6/uL (4.0-5.2); Red Cell Distribution Width 13.1 % (11.6-14.8); White Blood Cell Count 9.4 X10^3/uL (4.5-11.0)
[2023-12-25 05:17] LABS: BUN Creatinine Ratio 23.7 (6-22); Blood Urea Nitrogen 14 mg/dL (7-17); Calcium 8.2 mg/dL (8.4-10.2); Carbon Dioxide 25 mmol/L (22-32); Chloride 100 mmol/L (98-107); Estimated Glomerular Filt Rate > 60 mL/min (>60); Glucose 83 mg/dL (80-110); HEMOLYSIS < 15 (0-50); Potassium 3.6 mmol/L (3.4-5.1); Sodium 130 mmol/L (137-145)
[2023-12-25] MEDS: PANTOPRAZOLE DR 20 MG TABLET PO ×3 (06:50→21:17)
--- NOTE | 2023-12-25 08:00 | PC.NURSE ---
Spoke with Dr. Ivan @0800, advised him that pharmacy just sent 1000ML bag of 0.9 NS with 40meq k+ for order that was placed @2215 last night and marked 'not given @0304. Per Dr Whitley, d/c all IV fluids.
[2023-12-25] MEDS: LEVOTHYROXINE 75 MCG TABLET PO (08:19)
[2023-12-25] MEDS: ENOXAPARIN 40 MG/0.4 ML SYRINGE SUBCUT (08:49)
[2023-12-25] MEDS: LIDOCAINE 5% PATCH 1 EACH TOP (08:49)
[2023-12-25] MEDS: SODIUM CHLORIDE 0.9% FLUSH 10 ML IV ×3 (09:24→21:48)
[2023-12-25] MEDS: POTASSIUM CHLORIDE 10 MEQ TAB PO (09:57)
[2023-12-25] MEDS: HYDROCORTISONE 10 MG TABLET PO (09:58)
--- NOTE | 2023-12-25 11:04 | ST.IPCSEOM ---
Visit Care Team Role Provider Type Nia Marcano DO Primary Care Provider Non-Staff Specialty: Internal Medicine Address: [address] [place], [address] Email: Mariusz Mendoza MD Other Providers Physician Specialty: Orthopedics Orthopedic Surgery Address: [address] [place] [address], [id number] Email: [email or web address] Giovanni Sanchez DO Emergency Provider Physician Referring Provider Specialty: Emergency Medicine Address: [address] [place] [address], [address] Email: [email or web address] Giovanni Nguyen MD Admit Provider Physician Attending Provider Specialty: Internal Medicine Address: [address] [place] [address], [facility] Fax: Email: [email or web address] Diagnoses Hypothyroidism, unspecified (12/24/23) Hypo-osmolality and hyponatremia (12/24/23) Unspecified fracture of first lumbar vertebra, initial encounter for closed fracture (12/24/23) Past Medical History (Last Reviewed 12/24/23 @ 18:25 by Ro Welsh PA-C) Balance problem (Medical) Cervical somatic dysfunction (Medical) Chicken pox (Medical) Chronic cough (Medical ~2011) Cranial somatic dysfunction (Medical) Diabetes insipidus (Medical ~1999) Fecal incontinence (Medical ~2018) Foot pain (Medical ~2019) Hearing loss (Medical ~1999) Hemorrhoid (Medical) History of urinary incontinence (Medical ~2016) Hypothyroidism (acquired) (Medical ~2000) Measles (Medical) Nocturnal hypoxemia (Medical) Osteoporosis (Medical) Sarcoidosis (Medical ~2011) Stiff back (Medical) Stiff neck (Medical) Stroke (Medical ~2014) Thoracic region somatic dysfunction (Medical) Speech-Language Pathology Swallow Evaluation INSURANCE HEALTHCARE CONSULTANT Clinical Swallow Evaluation Start: 12/25/23 10:23 Freq: Status: Active Protocol: Document 12/25/23 10:23 MA (Rec: 12/25/23 10:32 MA [id number]) Clinical Swallow Evaluation Session Time Visit Start Time 08:20 Visit Stop Time 08:50 Total Visit Minutes 30 Visit Information Visit Number Initial evaluation Referral Referring Provider Dr. Giovanni Nguyen Setting Assessment Location Acute Care Visit Type Note Type Initial evaluation Next Note Type Next Note Type Treatment Note Patient Information Identification Type Name,Wristband History Per H&P: The pt is a debilitated 73 yo with advanced dementia and chronic back problems with multiple surgeries who fell at home today and was unable to get up off the floor so bolivar called 911 and she was brought to the ER. She states that she falls at home about weekly despite having a front wheeled walker. She states that the pain is a 10 out of 10 during my interview but denies any pain radiating to the legs, no numbness in the legs. There was no LOC, head trauma, it was reported that she has some dysphagia but it is only when swallowing pills. PMHx significant for: Thoracic region somatic dysfunction Cervical somatic dysfunction Stiff back Stiff neck Cranial somatic dysfunction Chronic cough (~2011) Stroke (~2014) Osteoporosis Foot pain (~2019) Measles Chicken pox Hearing loss (~1999) History of urinary incontinence (~2016) Fecal incontinence (~2018) Hemorrhoid Balance problem Hypothyroidism (acquired) (~ 2000) Diabetes insipidus (~1999) Nocturnal hypoxemia Sarcoidosis (~2011) Chest x-ray completed 12/24/23 with the following: IMPRESSION : Moderate right infrahilar opacity likely aspiration or infection. Underlying fibrotic and reticular changes seen in the lungs. Low lung volumes. Consider future imaging surveillance Pt referred for ST evaluation d/t hx of dysphagia and chronic cough. Subjective Observations Pt sitting upright in bed with breakfast on tray table in front of her. She appeared IQUGMIUT , however able to answer simple Y/N questions with max repetition and increased volume. Pt arrived during the middle of the evaluation and reports he has to change the batteries in her hearing aids. He states she consumes regular solids and thin liquids at home, however is very impulsive and requires cues to slow down and take small bites. He reports she also takes a medication to prevent emesis during meals, which occurr about every 2-3 weeks. Reported by Patient/Caregiver Other Symptoms Coughing,Difficulty swallowing pills Current Diet Regular (IDDSI 7) Baseline Feeding Method Needs some assistance The IDDSI Framework Protocol: IDDSI.1 Objective Assessment Mental Status Alert,Cooperative,Confused, Impulsive Comment ST unable to complete formal oral motor exam given Pt with cognitive deficits and IQUGMIUT. Pt with natural dentition, fair condition. ST suspects generalized weakness and reduced ROM. Food and Liquid Trials Position During Assessment Upright (90 degrees) Liquids Trialed Thin (IDDSI 0) Solid Trials Soft & Bite-sized (IDDSI 6), Regular (IDDSI 7) Administration Type Controlled cup sip,Self- feeding Oral Impairment Moderately impaired Oral Phase Comments Pt consumed a few bites of georgian toast, breakfast sausage link and fruit consisting of cantalope, pineapple and grapes. She also consumed about 4 oz of thin water via cup. For solids, Pt demonstrated medium-large bites, prolonged mastication, impulsivity resulting in Pt putting several bites of food in her mouth at a time before swallowing the previous bite, poor bolus formation, extended ap transport. For thin liquids, Pt demonstrated good oral acceptance and containment, suspected loss of bolus resulting in premature spillage, adequate sip size and rate. Pharyngeal Impairment Mildly impaired Pharyngeal Phase Comments For solids, Pt demonstrated suspected delay in swallow, no overt s/s of aspiration. For thin liquids, Pt demonstrated suspected delay in swallow, delayed cough reflex x1. The IDDSI Framework Protocol: IDDSI.1 Findings Swallowing Function Oropharyngeal phase dysphagia Severity of Swallow Impairment Mildly-moderately impaired Contributing Factors to Swallow Reduced alertness or attention Impairment ,Difficulty following directions,Mastication inefficiency Comments Impulsive Based on Family support Impact on Safety and Functioning Risk for aspiration,Risk for inadequate nutrition/hydration Recommendations Swallowing Treatment Yes Frequency Daily while inpatient Recommended Solids Soft & Bite-sized (IDDSI 6) Recommended Liquids Thin (IDDSI 0) Other Recommendations ST recommends IDDSI 6/IDDSI 0 with the below mentioned safe swallowing strategies in place . ST to continue to assess Pt' s swallow function/diet tolerance with possible recommendation for MBS depending on ability to follow directions and sit still for xray. Safety Precautions/Swallowing 1 to 1 close supervision, Recommendations Reduce distractions,Remain upright (90 degrees) during all oral intake,Needs verbal cues to use recommended strategies,Upright position at least 30 minutes after meals, Small bites and sips when eating,Slow rate; swallow between bites,Alternate liquids and solids,Set-up assistance,Strict oral care after intake Medication Recommendations Crushed in Carrier Education Patient/Caregiver Education Described results of evaluation,Family/caregivers expressed understanding of evaluation,Family/caregivers expressed agreement with goals & treatment plans,Family/ caregivers require further education/training Goals Short-term Goals STG 1: Patient will tolerate PO trials of IDDSI 6/7 with no clinical s/s of dysphagia 100 % of the time in order to consume least restrictive diet . STG 2: Patient will tolerate thin liquids with no clinical s/s of aspiration 100% of the time in order to consume least restrictive diet. Long-term Goals LTG: Patient will tolerate safest and most efficient diet with no clinical s/s of aspiration or dysphagia 100% of the time in order to consume least restrictive diet .
--- NOTE | 2023-12-25 14:00 | PT.IIE ---
Current Diagnoses Hypothyroidism, unspecified (12/24/23) Hypo-osmolality and hyponatremia (12/24/23) Unspecified fracture of first lumbar vertebra, initial encounter for closed fracture (12/24/23) Surgical History (Last Reviewed 12/24/23 @ 18:25 by Ro Welsh PA-C) Anesthesia Cataracts, bilateral (~2019) History of cholecystectomy (~2014) History of craniopharyngioma (~1988) History of craniotomy History of parathyroidectomy (~2017) History of partial hysterectomy (~1972) Medical History (Last Reviewed 12/24/23 @ 18:25 by Ro Welsh PA-C) Balance problem Cervical somatic dysfunction Chicken pox Chronic cough (~2011) Cranial somatic dysfunction Diabetes insipidus (~1999) Fecal incontinence (~2018) Foot pain (~2019) Hearing loss (~1999) Hemorrhoid History of urinary incontinence (~2016) Hypothyroidism (acquired) (~2000) Measles Nocturnal hypoxemia Osteoporosis Sarcoidosis (~2011) Stiff back Stiff neck Stroke (~2014) Thoracic region somatic dysfunction Physical Therapy Inpatient Evaluation/Re-Eval M1 PT/OT-IP Prior Functional Status Start: 12/25/23 16:09 Freq: NEEDED Status: Active Protocol: Document 12/25/23 14:00 AB (Rec: 12/25/23 16:12 AB [id number]) Medical Review Prior Functional Status Medical History Reviewed Yes Communication able to make needs known; pt with confusion and memory issues Mobility and Gait pt stated that she was modified independent with all mobilities and ambulation using a FWW; spouse stated that pt has h/o falls Social History Household Members spouse Living Arrangements House Number of Floors (Floors) One Floor Number of Stairs To Enter/Railing? 3 steps B rails to enter the house Home Environment Standard Height Toilet,Walk in Shower,Built-In Shower Seat Home Equipment Front Wheel Walker,Manual Wheelchair,Hand Held Shower, Grab Bars Near Toilet,Grab Bars In Shower Additional Social History Comment spouse has limited ability to assist pt due to his own medical issues M2 PT-IP Current Condition Start: 12/25/23 16:09 Freq: NEEDED Status: Active Protocol: Document 12/25/23 14:00 AB (Rec: 12/25/23 16:12 AB [id number]) Physical Therapy Current Condition Current Condition Evaluation Date 12/25/23 Treatment Diagnosis s/p fall; L1 fx; difficulty in walking Onset Date 12/24/23 M3 PT-IP Subjective Start: 12/25/23 16:09 Freq: NEEDED Status: Active Protocol: Document 12/25/23 14:00 AB (Rec: 12/25/23 16:22 AB [id number]) Subjective Physical Therapy Visit Type Type Initial Evaluation Visit Start Time 14:00 Visit Stop Time 15:30 Notes pt seen for split visits: 1400 to 1420 and 1500 [id number] Number of WET END OPERATOR Visits 0 Physical Therapy Visit Comments Patient Comments pt is agreeable to do PT Therapy Pain Assessment Pain When Pain Assessed At Rest Pain Present Pain Present Pain Reported Location lower back Scale Used pain scale not stated Pain Management Techniques Distraction,Modification of Treatment,Re-positioning, Timing of Activity with Medications M4 PT-IP Mobility and Gait Start: 12/25/23 16:09 Freq: NEEDED Status: Active Protocol: Document 12/25/23 14:00 AB (Rec: 12/25/23 16:22 AB [id number]) PT-Bed Mobility Assessment Rolling Type of Rolling Log Rolling Level of Assist Maximal Assistance,1 Person Assistance Supine to Sit Supine to Sit Maximum Assistance,Head of Bed Elevated,Bedrails Sit to Supine Sit to Supine Moderate Assistance,Head of Bed Elevated,Bedrails PT-Transfer Assessment Sit to and From Stand Sit to and from Stand Moderate Assistance,2 Person Assistance,Use of Upper Extremities Equipment Transfer Assistive Device Gait Belt,Front Wheeled Walker Orthotic/Prosthetic Devices or Brace: No Transfers Transfer Destination Bed,Bedside Commode Transfer Technique Stand Step Pivot Transfer Ability Level of Assist Moderate Assistance,2 Person Assistance,Use of Upper Extremities Comments Mobility Comments pt supine in bed and still in the ER. obtained PLOF and home set up from PT. ED nurse stated that pt will be transferring to acute floor any minute after taking his medication. checked back on pt again after pt got up to acute floor. spouse now in room with pt. pt requesting to use the toilet. educated pt regarding her back precautions and log roll bed mobility. pt is impulsive and has memory issues and unable to follow her precautions. completed supine to sit max A and max cues. mod A for sitting balance. bedside commode positioned next to pt. pt completed sit to stand mod A x 2 and max cues and step transfer to bedside commode mod A x 2 and max cues using fWW. pt required assistance for hygiene care and brief management. pt completed sit to stand from the commode mod A x 2 and max cues and step transfer to EOB mod A x 2 and max cues using fWW. received order for TLSO brace for pt. Per Dr. Mendoza note: ok for pt to work with PT while waiting for TLSO. fitted pt with TLSO brace. pt stated that she wants to go back to bed due to feeling tired and unable to do further activities. completed sit to supine mod A but unable to adhere to log roll bed mobility due to impulsiveness . HOB elevated. positioned pt in bed. call light and table placed within each. spouse signed papers for TLSO brace. pt agreeable for pt to go to SNF is needed. Gait Assessment Comments Gait Comments unable at this time PT-Balance Assessment Sitting Balance and Reactions Static Sitting Balance Ability Fair Dynamic Sitting Balance Ability Fair Standing Balance and Reactions Static Standing Balance Ability Poor Dynamic Standing Balance Ability Poor Device Used FWW M5 PT-IP Objective Assessments Start: 12/25/23 16:09 Freq: NEEDED Status: Active Protocol: Document 12/25/23 14:00 AB (Rec: 12/25/23 16:23 AB [id number]) Orientation Orientation/Cognition Level of Alertness Confusional State Orientation Name,Place,Situation Safety Awareness Decreased Safety Awareness Memory Description Short Term Impaired,Alf Impaired Gross Range of Motion Lower Extremity ROM Assessment Within Functional Limits Strength Lower Extremity Strength Hip 3+/5 Knee 4-/5 Muscle Tone Muscle Tone WNL Yes Other Assessments Other Other Assessments (+) LLE tremors M6 PT-IP Treatment Start: 12/25/23 16:09 Freq: NEEDED Status: Active Protocol: Document 12/25/23 14:00 AB (Rec: 12/25/23 16:23 AB [id number]) Physical Therapy Treatment Education Education Provided Precautions,Weight Bearing Status,Safety M7 PT-IP Assessment and Plan Start: 12/25/23 16:09 Freq: NEEDED Status: Active Protocol: Document 12/25/23 14:00 AB (Rec: 12/25/23 17:09 AB [id number]) PT Summary Assessment and Plan Potential Rehabilitation Potential Fair Status of Condition at Evaluation Evolving Summary Impairments Pain,ROM,Strength,Balance, Coordination,Sensation,Tone, Cognition,Bed Mobility, Transfers,Gait,Activity Tolerance Assessment Summary pt is a 73 y/o F who presented to the ED s/p fall. pt sustained a L1 vertebral fx. TLSO ordered by ortho MD and is WBAT. provided pt with TLSO. pt requiring max A for bed mobility and mod A x 2 for transfers using FWW. pt is impulsive and has decrease safety awareness affecting mobility independence. pt has h/o falls and continues to be a high fall risk. pt will require SNF rehab to improve overall strength and mobility. Goals Bed Mobility Goal Standby Assistance Transfer Goal Standby Assistance,Front Wheeled Walker Gait Goal Standby Assistance,Front Wheel Walker Gait Distance 50 Other Goals improve ambulation using FWW ~ 150 ft SBA up/down 3 steps B rails SBA Days to Meet Goals 10 Frequency of Treatment Frequency Of Treatment Once a Day Treatment Plan Physical Therapy Treatment Plan Bed Mobility Training,Transfer Training,Gait Training, Therapeutic Exercise,Balance Retraining,Discharge Planning, Hot or Cold Pack,Neuromuscular Re-ed,Coordination Retraining ,Manual Therapy Precautions Lumbar Precautions Log Roll,No Twisting,Limit Bending,Lifting Restriction of 10 lbs Weight Bearing Status Weight Bearing Status Weight Bear as Tolerated Recommendations To Nursing Amount of Assist Needed 2 Person Assist Discharge Recommendations PT Discharge Recommendations SNF Rehab Transportation Needs at Discharge Wheelchair/Cabulance
--- NOTE | 2023-12-25 14:04 | PC.NURSE ---
Report given to Aria RN room 205
[2023-12-25] MEDS: ONDANSETRON 4 MG/2 ML INJ IV (14:05)
--- NOTE | 2023-12-25 15:33 | OT.IP.EVAL ---
Current Diagnoses Hypothyroidism, unspecified (12/24/23) Hypo-osmolality and hyponatremia (12/24/23) Unspecified fracture of first lumbar vertebra, initial encounter for closed fracture (12/24/23) Past Medical History (Last Reviewed 12/24/23 @ 18:25 by Ro Welsh PA-C) Balance problem Cervical somatic dysfunction Chicken pox Chronic cough (~2011) Cranial somatic dysfunction Diabetes insipidus (~1999) Fecal incontinence (~2018) Foot pain (~2019) Hearing loss (~1999) Hemorrhoid History of urinary incontinence (~2016) Hypothyroidism (acquired) (~2000) Measles Nocturnal hypoxemia Osteoporosis Sarcoidosis (~2011) Stiff back Stiff neck Stroke (~2014) Thoracic region somatic dysfunction Surgical History (Last Reviewed 12/24/23 @ 18:25 by Ro Welsh PA-C) Anesthesia Cataracts, bilateral (~2019) History of cholecystectomy (~2014) History of craniopharyngioma (~1988) History of craniotomy History of parathyroidectomy (~2017) History of partial hysterectomy (~1972) Occupational Therapy Inpatient Evaluation/Re-Eval M1 PT/OT-IP Prior Functional Status Start: 12/25/23 16:09 Freq: NEEDED Status: Active Protocol: Document 12/25/23 14:00 AB (Rec: 12/25/23 16:12 AB [id number]) Medical Review Prior Functional Status Medical History Reviewed Yes Communication able to make needs known; pt with confusion and memory issues Mobility and Gait pt stated that she was modified independent with all mobilities and ambulation using a FWW; spouse stated that pt has h/o falls Social History Household Members spouse Living Arrangements House Number of Floors (Floors) One Floor Number of Stairs To Enter/Railing? 3 steps B rails to enter the house Home Environment Standard Height Toilet,Walk in Shower,Built-In Shower Seat Home Equipment Front Wheel Walker,Manual Wheelchair,Hand Held Shower, Grab Bars Near Toilet,Grab Bars In Shower Additional Social History Comment spouse has limited ability to assist pt due to his own medical issues M2 OT-IP Current Condition Start: 12/25/23 15:57 Freq: Status: Active Protocol: Document 12/25/23 15:57 [facility] (Rec: 12/25/23 16:19 [facility] [id number]) Occupational Therapy Current Condition Current Condition Evaluation Date 12/25/23 Treatment Diagnosis Closed L1 vertebral fracture Diagnosis Onset Date 12/24/23 Post Operative Precautions Lumbar Precautions Log Roll,No Twisting,Limit Bending,Lifting Restriction of 10 lbs,Gait Belt above Incisional Area Other Precautions TLSO when up out of bed. M3 OT- IP Subjective and Pain Start: 12/25/23 15:57 Freq: Status: Active Protocol: Document 12/25/23 15:57 [facility] (Rec: 12/25/23 16:19 [facility] [id number]) OT- Subjective Occupational Therapy Visit Type Type Initial Evaluation Visit Start Time 14:55 Visit Stop Time 15:33 Occupational Therapy Visit Comments Patient Comments Pt wanting to use the BSC. Pt' s in the room. PT in the room to assist with TLSO. Patient/Caregiver Goals Pt's wants pt to go to skilled rehab. OT Pain Assessment Pain When Pain Assessed During Mobility Pain Present Pain Present Pain Reported Location lower back Pain Behaviors Calling Out,Holding Area, Wincing M4 OT- IP ADL's Start: 12/25/23 15:57 Freq: Status: Active Protocol: Document 12/25/23 15:57 [facility] (Rec: 12/25/23 16:19 [facility] [id number]) OT [id number] Comments OT Self-Feeding Comments Not at meal time. Pt will need assist with set-up. OT ADL-Grooming Comments OT Grooming Comments Not performed. OT ADL-Oral Care Comments Oral Care Comments Not performed. OT ADL-Dressing General Eval Lower Body Dressing Ability Maximum Assistance Areas Needing Assistance Underpants/Brief,Socks Comments OT Dressing Comments Pt needing assist for brief and socks. OT ADL-Toileting General Evaluation Toileting Ability Maximum Assistance Areas Needing Assistance Manage Clothing,Perform Perineal Hygiene Comments OT Toileting Comments Assist for all clothing/ hygiene needs and assist to stand to the FWW. OT ADL-Bathing Comments OT Bathing Comments Not performed. M5 OT- IP IADL's Start: 12/25/23 15:57 Freq: Status: Active Protocol: Document 12/25/23 15:57 [facility] (Rec: 12/25/23 16:19 [facility] [id number]) OT-Instrumental Activities of Daily Living Home Safety Awareness Awareness of Need for Assistance at Home Decreased Awareness Ability to Problem Solve Emergency Unable to Problem Solve Situations Medication Management Medication Management Caregiver Administers Money Management Money Management Caregiver Provides Assistance Meal Preparation Meal Preparation Caregiver Provides Assist Ceramic Worker Ceramic Worker Caregiver Provides Assist M6 OT- IP Functional Cognition Start: 12/25/23 15:57 Freq: Status: Active Protocol: Document 12/25/23 15:57 [facility] (Rec: 12/25/23 16:19 [facility] [id number]) Cognitive Factors Limiting Selfcare Function Cognitive Ability Level of Alertness Drowsy Patient Orientation Name Attention Span Ability Capable of Focused Attention, Capable of Sustained Attention Ability to Follow Commands Able to Follow One Step Commands with Increased Time, Able to Follow One Step Commands with Repetition Memory Description Short Term Impaired,Working Impaired Cognitive Comments Cognitive Assessment Comments Pt needing step by step commands to follow for ADL and mobility needs. Pt not able to recall any back precautions and needing direct supervision and assist for ADl and mobility needs. Pt needing MAX vc for safety awareness and to be able to follow her back precautions. OT- Vision and Hearing OT- Hearing Assessment OT- Hearing Assessment Use of Hearing Aids OT- Vision Assessment Visual Acuity Glasses All The Time M7 OT- IP Mobility and Balance Start: 12/25/23 15:57 Freq: Status: Active Protocol: Document 12/25/23 15:57 [facility] (Rec: 12/25/23 16:19 [facility] [id number]) OT- Bed Mobility Assessment Rolling Level of Assistance Maximum Assistance,1 Person Assistance Supine to Sit Supine to Sit Assist Maximum Assistance,1 Person Assistance OT-Transfer Assessment Sit to and From Stand Sit to and from Stand Moderate Assistance,2 Person Assistance Transfers Transfer Ability Moderate Assistance,2 Person Assistance Technique Transfer Destination Bed,Bedside Commode Devices Transfer Assistive Devices Gait Belt,Front Wheeled Walker Comments Mobility Comments MAXA x1 for bed mobility and MOD A x2 to stand and transfer with FWW. VC for hand placement, balance, and to follow her back precautions. OT- Gait Assessment Assistive Devices Assistive Device Gait Belt,Front Wheeled Walker OT- Balance Assessment Sitting Balance and Reactions Static Sitting Balance Ability Fair Dynamic Sitting Balance Ability Fair Standing Balance and Reactions Static Standing Balance Ability Poor Dynamic Standing Balance Ability Poor M8 OT- IP Objective Assessments Start: 12/25/23 15:57 Freq: Status: Active Protocol: Document 12/25/23 15:57 [facility] (Rec: 12/25/23 16:19 [facility] [id number]) OT Strength Comments Strength Comments Not able to fully assess at least 3+/5. OT- Coordination Assessment Comments Coordination Comments Tremors in her left hand noted . M9 OT- IP Assessment and Plan Start: 12/25/23 15:57 Freq: Status: Active Protocol: Document 12/25/23 15:57 [facility] (Rec: 12/25/23 16:19 [facility] [id number]) OT Summary Assessment and Plan Potential Rehabilitation Potential Fair Analytic Complexity at Evaluation Moderate Summary OT Impairments Pain,Strength,Balance, Functional Cognition, Functional Mobility,Self- Feeding,Grooming,Dressing, Toileting,Bathing,Toilet Transfers,Shower Transfers, Activity Tolerance Progress Towards Goals Slow Progress due to Pain,Slow Progress due to Medical Issues,Slow Progress due to Activity Tolerance,Slow Progress due to Cognition Assessment Summary Pt MOD complexity and main barriers are needing extensive assist for mobility needs and for ADL's , not able to recall her back precautions, and unsteady on her feet. Pt's has physical limitations to lift and best for pt to go to skilled rehab at this time. Goals Self-Feeding Goal Standby Assistance Grooming Goal Standby Assistance Dressing Goal Minimal Assistance Toileting Goal Standby Assistance Bathing Goal Minimal Assistance Toilet Transfer Goal Standby Assistance Shower Transfer Goal Standby Assistance Patient/Caregiver Education Goal Demonstrate Post-Op Precautions,Caregiver Independent Assisting Patient Days to Meet Goals 15 Frequency of Treatment Frequency Of Treatment Once a Day Treatment Plan OT Treatment Plan ADL Training,Functional Mobility,Patient/Family Education,Discharge Planning Other Treatment Recommendations and Next Pt to practice LB dressing Treatment Focus equipment. Discharge Recommendations OT Discharge Recommendations SNF Rehab Transportation Needs at Discharge Wheelchair/Cabulance
--- NOTE | 2023-12-25 15:48 | PC.NURSE ---
Pt to room 205 via bed and able to transfer to bed in room with 1/P/A. Pt is oriented to self. Very forgetful moment to moment and easily confused. Pt's Spouse is at the bedside and is assisting with admit and questions. Pt up to bsc to void with assist. PT and OT in to fit Pt for TSL brace. SCD's on and running. BED alarm on for safety. Pt and Spouse oriented to room, call light, bed controls, and tv controls.
--- NOTE | 2023-12-25 20:25 | PM.HP.1 ---
History of Present Illness History of Present Illness Date Patient Seen: 12/25/23 Chief complaint: GLF last sunday back injury, no thinners Narrative: The pt is a debilitated 73 yo with advanced dementia and chronic back problems with multiple surgeries who fell at home today and was unable to get up off the floor so bol[place]ar called 911 and she was brought to the ER. She states that she falls at home about weekly despite having a front wheeled walker. She states that the pain is a 10 out of 10 during my interview but denies any pain radiating to the legs, no numbness in the legs. There was no LOC, head trauma, it was reported that she has some dysphagia but it is only when swallowing pills. Pt's is sole caregiver. She has history of chronic diabetes insipidus and takes desmopressin and on hydrocortisone for adrrenal insuffciency secondary to craniopharyngioma resection and radiation therapy. Also has past hx of CVA with left eye droop since then. [facility] Medical History Thoracic region somatic dysfunction Cervical somatic dysfunction Stiff back Stiff neck Cranial somatic dysfunction Chronic cough (~2011) Stroke (~2014) Osteoporosis Foot pain (~2019) Measles Chicken pox Hearing loss (~1999) History of urinary incontinence (~2016) Fecal incontinence (~2018) Hemorrhoid Balance problem Hypothyroidism (acquired) (~2000) Diabetes insipidus (~1999) Nocturnal hypoxemia Sarcoidosis (~2011) Surgical History History of craniotomy Anesthesia History of parathyroidectomy (~2017) History of cholecystectomy (~2014) History of partial hysterectomy (~1972) Cataracts, bilateral (~2019) History of craniopharyngioma (~1988) Family History Father Diabetes mellitus History of heart disease Hypertension History of kidney problems Mother Cancer Mental health problem Stroke Sister Hypertension Grandmother History of heart disease Mental health problem Brother Mental health problem Social History household members: spouse Smoking Status: Former smoker alcohol intake: never substance use type: does not use Meds Home Medications and Allergies Home Medications Medication Instructions Recorded Confirmed Type aspirin 81 mg tablet,delayed 81 mg PO DAILY 12/14/20 12/24/23 History release calcium carbonate 600 mg-vitamin 1 cap PO BID 12/14/20 12/25/23 History D3 10 mcg (400 unit) capsule pantoprazole 40 mg tablet,delayed 40 mg PO BID 12/14/20 12/25/23 History release potassium chloride 10 mEq 10 meq PO DAILY 12/14/20 12/24/23 History capsule,extended release hydrocortisone 10 mg tablet See Rx Instructions PO .COMPLEX 01/20/21 12/24/23 Rx #225 tabs simvastatin 20 mg tablet See Rx Instructions .Route 06/15/21 12/24/23 Rx .COMPLEX #90 tabs levothyroxine 75 mcg tablet See Rx Instructions .Route 07/08/21 12/25/23 Rx .COMPLEX #30 tabs ascorbic acid (vitamin C) 1,000 mg 500 mg PO DAILY 03/15/22 12/24/23 History tablet hydrocortisone sod succinate 100 200 mg IM Q12H 03/15/22 12/25/23 History mg/2 mL solution for injection desmopressin 0.1 mg tablet 0.3 mg PO BEDTIME 12/24/23 12/25/23 History desmopressin 0.2 mg tablet 0.2 mg PO ,15 12/24/23 12/25/23 History hyoscyamine sulfate 0.125 mg tablet 0.125 mg PO BID 12/24/23 12/24/23 History donepezil 5 mg tablet 10 mg PO QPM 12/25/23 12/25/23 History fluticasone 250 mcg-salmeterol 50 1 ea inhalation DAILY 12/25/23 12/25/23 History mcg/dose blistr powdr for inhalation Allergies Allergy/AdvReac Type Severity Reaction Status Date / Time phenobarbital AdvReac Unknown Rash Verified 03/15/22 14:41 Exam Vital Signs (past 8 hours): - 12/25/23 15:40 Pulse Oximetry 93 Oxygen Delivery Method Room Air Oxygen Flow Rate 0 Oxygen Delivery Method Room Air Oxygen Flow Rate 0 Narrative Exam Narrative: gen: alert, s/w confused Lungs: clear CV: regular rhythm Abd: no HSM Ext: no edema Neuro: confused, but oriented to person and place, sensory intact LE, movement intact LE Objective Labs 12/25/23 04:58 12/25/23 04:58 Labs: Laboratory Results - last 24 hr 12/25/23 04:58 WBC 9.4 RBC 3.72 L Hgb 12.0 Hct 34.8 L MCV 93.6 MCH 32.2 MCHC 34.4 RDW 13.1 Plt Count 244 Neut % (Auto) 49.2 L D Lymph % (Auto) 35.4 D [place] % (Auto) 10.7 Eos % (Auto) 3.9 Baso % (Auto) 0.8 Neut # (Auto) 4600 Lymph # (Auto) 3300 [place] # (Auto) 1000 H Eos # (Auto) 400 Baso # (Auto) 100 Sodium 130 L Potassium 3.6 Chloride 100 Carbon Dioxide 25 BUN 14 Creatinine 0.59 Estimated GFR > 60 BUN/Creatinine Ratio 23.7 H Glucose 83 Calcium 8.2 L Assessment & Plan Assessment & Plan narrative: 1. L1 burst fracture 2. Frequent falls 3. Diabetes insipidus 4. Chronic adrenal insufficiency 5. Dementia 6. Hypothyroidism (pituitary) 7. Hyperlipidemia PLAN: -CT scan: 60% compression deformity at L1 with fracture lucencies in the anterior, middle and posterior thirds of the vertebral body. There is moderate spinal stenosis secondary to retropulsion the posterior aspect of the superior endplate as well as causing compromise of the right lateral recess. -Ortho consult in chart - rec TLSO and WBAT PT/OT consult Routine home meds - Na is appropiate on desmopressin therapy Placement DVT prevention: Lovenox Code status: Full Surrogate: spouse
[2023-12-25] MEDS: HYDROCORTISONE 10 MG TABLET 5 MG PO (21:15)
[2023-12-25] MEDS: ATORVASTATIN 20 MG TABLET 10 MG PO (21:17)
--- NOTE | 2023-12-26 06:40 | PM.PN.1 ---
Subjective Subjective Date Patient Seen: 12/26/23 Time Patient Seen: 06:40 Interval history: Pt seen this morning, resting comfortably in bed, c/o back pain. Denies leg pain. She has dementia and follows commands appropriately, though does not answer some questions. Per PT note, TLSO has been ordered. Exam Vital Signs (past 8 hours): Oxygen Delivery Method Room Air Oxygen Flow Rate 0 Narrative Exam Narrative: 5/5 strength in hip flexors, quadriceps, hamstrings, DF, PF, EHL bilaterally. Sensation to light touch intact throughout BLE. Calves soft, compressible, nontender; SCDs on and functioning. Objective Labs 12/25/23 04:58 12/25/23 04:58 [facility] Medical History Thoracic region somatic dysfunction Cervical somatic dysfunction Stiff back Stiff neck Cranial somatic dysfunction Chronic cough (~2011) Stroke (~2014) Osteoporosis Foot pain (~2019) Measles Chicken pox Hearing loss (~1999) History of urinary incontinence (~2016) Fecal incontinence (~2018) Hemorrhoid Balance problem Hypothyroidism (acquired) (~2000) Diabetes insipidus (~1999) Nocturnal hypoxemia Sarcoidosis (~2011) Surgical History History of craniotomy Anesthesia History of parathyroidectomy (~2017) History of cholecystectomy (~2014) History of partial hysterectomy (~1972) Cataracts, bilateral (~2019) History of craniopharyngioma (~1988) Family History Father Diabetes mellitus History of heart disease Hypertension History of kidney problems Mother Cancer Mental health problem Stroke Sister Hypertension Grandmother History of heart disease Mental health problem Brother Mental health problem Social History household members: spouse Smoking Status: Former smoker alcohol intake: never substance use type: does not use Assessment & Plan Assessment and plan (1) Closed L1 vertebral fracture: Status: Acute Plan: 1) Per PT note, pt able to transfer and stand with help and walker; will need SNF. 2) Pain control and VTE prophylaxis per hospitalist service; currently SCDs and enoxaparin. 3) TLSO when upright/working w/ PT. Ok to transfer/mobilize w/ PT without TLSO if not immediately available. 4) Case reviewed w/ Dr Stinson. F/u w/ Dr Stinson in 4 weeks for repeat imaging; contact office sooner if pt develops LE weakness.
[2023-12-26] MEDS: LEVOTHYROXINE 75 MCG TABLET PO (06:57)
--- NOTE | 2023-12-26 07:33 | P.PN_ITS ---
Subjective Subjective Interval history: Back pain is improved. No other complaints. Exam Vital Signs (past 8 hours): Oxygen Delivery Method Room Air Oxygen Flow Rate 0 Narrative Exam Narrative: NAD, awake. Slow and soft speech. Lungs are clear, normal rate and effort. Heart is regular, no murmur gallop or rub. Abdomen is soft, non distended. Extremities are free of edema. Moves legs and feet. Objective Labs 12/25/23 04:58 12/25/23 04:58 [facility] Medical History Thoracic region somatic dysfunction Cervical somatic dysfunction Stiff back Stiff neck Cranial somatic dysfunction Chronic cough (~2011) Stroke (~2014) Osteoporosis Foot pain (~2019) Measles Chicken pox Hearing loss (~1999) History of urinary incontinence (~2016) Fecal incontinence (~2018) Hemorrhoid Balance problem Hypothyroidism (acquired) (~2000) Diabetes insipidus (~1999) Nocturnal hypoxemia Sarcoidosis (~2011) Surgical History History of craniotomy Anesthesia History of parathyroidectomy (~2017) History of cholecystectomy (~2014) History of partial hysterectomy (~1972) Cataracts, bilateral (~2019) History of craniopharyngioma (~1988) Family History Father Diabetes mellitus History of heart disease Hypertension History of kidney problems Mother Cancer Mental health problem Stroke Sister Hypertension Grandmother History of heart disease Mental health problem Brother Mental health problem Social History household members: spouse Smoking Status: Former smoker alcohol intake: never substance use type: does not use Assessment & Plan Assessment & Plan narrative: 1. L1 burst fracture, present on admission and active. 2. Frequent falls, present on admission and active. 3. Diabetes insipidus, present on admission and stable. 4. Chronic adrenal insufficiency, present on admission and stable. 5. Dementia, present on admission and stable. 6. Hypothyroidism (pituitary), present on admission and stable. 7. Hyperlipidemia, present on admission and stable. IMAGING: -CT scan: 60% compression deformity at L1 with fracture lucencies in the anterior, middle and posterior thirds of the vertebral body. There is moderate spinal stenosis secondary to retropulsion the posterior aspect of the superior endplate as well as causing compromise of the right lateral recess. PLAN: -Ortho consult in chart - rec TLSO and WBAT -PT/OT consult -Routine home meds - Na is appropiate on desmopressin therapy. Monitor Na. -Placement, SNF likely is needed.
[2023-12-26 08:00] VITALS: O2SAT 95
[2023-12-26] MEDS: ENOXAPARIN 40 MG/0.4 ML SYRINGE SUBCUT (09:12)
[2023-12-26] MEDS: HYDROCORTISONE 10 MG TABLET PO (09:13)
[2023-12-26] MEDS: ACETAMINOPHEN 325 MG TABLET 650 MG PO (09:13)
[2023-12-26] MEDS: LIDOCAINE 5% PATCH 1 EACH TOP (09:14)
[2023-12-26] MEDS: PANTOPRAZOLE DR 20 MG TABLET PO ×2 (09:14→21:01)
[2023-12-26] MEDS: POTASSIUM CHLORIDE 10 MEQ TAB PO (09:14)
[2023-12-26] MEDS: SODIUM CHLORIDE 0.9% FLUSH 10 ML IV ×2 (09:15→21:03)
[2023-12-26 09:45] VITALS: BP 131/73; PULSE 79; RESP 18; TEMP 36.3; O2SAT 93
--- NOTE | 2023-12-26 10:20 | PT.IPTN ---
Current Diagnoses Hypothyroidism, unspecified (12/24/23) Hypo-osmolality and hyponatremia (12/24/23) Unspecified fracture of first lumbar vertebra, initial encounter for closed fracture (12/24/23) Physical Therapy Treatment Note M2 PT-IP Current Condition Start: 12/25/23 16:09 Freq: NEEDED Status: Active Protocol: Document 12/25/23 14:00 AB (Rec: 12/25/23 16:12 AB [id number]) Physical Therapy Current Condition Current Condition Evaluation Date 12/25/23 Treatment Diagnosis s/p fall; L1 fx; difficulty in walking Onset Date 12/24/23 M3 PT-IP Subjective Start: 12/25/23 16:09 Freq: NEEDED Status: Active Protocol: Document 12/26/23 10:20 AB (Rec: 12/26/23 11:58 AB [id number]) Subjective Physical Therapy Visit Type Type Treatment Note Visit Start Time 10:20 Visit Stop Time 10:50 Number of JACQUARD LOOM WEAVER Visits 0 Therapy Pain Assessment Pain When Pain Assessed During Mobility Pain Present Pain Present Pain Reported Location lower back Scale Used pain scale not stated Pain Management Techniques Distraction,Modification of Treatment,Re-positioning, Timing of Activity with Medications M4 PT-IP Mobility and Gait Start: 12/25/23 16:09 Freq: NEEDED Status: Active Protocol: Document 12/26/23 10:20 AB (Rec: 12/26/23 11:58 AB [id number]) PT-Bed Mobility Assessment Rolling Level of Assist Minimal Assistance Supine to Sit Supine to Sit Moderate Assistance,Head of Bed Elevated,Bedrails PT-Transfer Assessment Sit to and From Stand Sit to and from Stand Moderate Assistance,1 Person Assistance,Use of Upper Extremities Equipment Transfer Assistive Device Gait Belt,Front Wheeled Walker Orthotic/Prosthetic Devices or Brace: Yes Transfers Transfer Destination Toilet Transfer Technique ambulated Transfer Ability Level of Assist Moderate Assistance,1 Person Assistance,Use of Upper Extremities Comments Mobility Comments pt supine in bed. spouse in room. pt requested to use the toilet. pt continues to have confusion and is very impulsive. completed supine to sit log roll mod A and max cues. HOB elevated and pt used bed rail. pt was able to sit on EOB SBA. assisted pt with putting TLSO. pt completed sit to stand mod A and ambulated to the toilet using FWW mod A and max cues. pt required assist with hygiene care and brief management. pt completed sit to stand from the toilet mod A using grab bar. max cues provided. pt ambulated to the chair using FWW mod A and cues. positioned pt on the chair. call light and table placed within reach. Gait Assessment Gait Gait Assistance Required: Moderate Assistance Distance (Feet) 10 Able to Maintain Weight Bearing Status Yes During Gait Assistive Devices Assistive Device Gait Belt,Front Wheeled Walker Orthotic/Prosthetic Devices or Brace: Yes Gait Deviations General Gait Pattern Decreased Stride Length, Decreased Feet Clearance Factors Limiting Gait Function Factors Limiting Gait Function Decreased Activity Tolerance, Decreased Strength,Difficulty Following Directions,Limited Range of Motion,Pain,Poor Balance,Poor Safety Awareness M5 PT-IP Objective Assessments Start: 12/25/23 16:09 Freq: NEEDED Status: Active Protocol: Document 12/25/23 14:00 AB (Rec: 12/25/23 16:23 AB [id number]) Orientation Orientation/Cognition Level of Alertness Confusional State Orientation Name,Place,Situation Safety Awareness Decreased Safety Awareness Memory Description Short Term Impaired,Change Management Specialist Impaired Gross Range of Motion Lower Extremity ROM Assessment Within Functional Limits Strength Lower Extremity Strength Hip 3+/5 Knee 4-/5 Muscle Tone Muscle Tone WNL Yes Other Assessments Other Other Assessments (+) LLE tremors M6 PT-IP Treatment Start: 12/25/23 16:09 Freq: NEEDED Status: Active Protocol: Document 12/26/23 10:20 AB (Rec: 12/26/23 11:58 AB [id number]) Physical Therapy Treatment Education Education Provided Precautions,Safety M7 PT-IP Assessment and Plan Start: 12/25/23 16:09 Freq: NEEDED Status: Active Protocol: Document 12/26/23 10:20 AB (Rec: 12/26/23 11:58 AB [id number]) PT Summary Assessment and Plan Potential Rehabilitation Potential Fair Summary Impairments Pain,ROM,Strength,Balance, Coordination,Sensation,Tone, Cognition,Bed Mobility, Transfers,Gait,Activity Tolerance Progress Towards Goals Slow Progress due to Medical Issues,Slow Progress due to Activity Tolerance,Slow Progress - Other Assessment Summary pt progressing slowly with mobility and able to ambulate to the toilet today using FWW requiring mod A and max cues. pt with dx of dementia and is unaware of her back precautions despite education provided. pt will require SNF rehab to improve overall strength and mobility. will continue to assess progress. Goals Bed Mobility Goal Standby Assistance Transfer Goal Standby Assistance,Front Wheeled Walker Gait Goal Standby Assistance,Front Wheel Walker Gait Distance 50 Other Goals improve ambulation using FWW ~ 150 ft SBA up/down 3 steps B rails SBA Days to Meet Goals 10 Frequency of Treatment Frequency Of Treatment Once a Day Treatment Plan Physical Therapy Treatment Plan Bed Mobility Training,Transfer Training,Gait Training, Therapeutic Exercise,Balance Retraining,Discharge Planning, Hot or Cold Pack,Neuromuscular Re-ed,Coordination Retraining ,Manual Therapy Precautions Lumbar Precautions Log Roll,No Twisting,Limit Bending,Lifting Restriction of 10 lbs Weight Bearing Status Weight Bearing Status Weight Bear as Tolerated Recommendations To Nursing Amount of Assist Needed 1 Person Assist Discharge Recommendations PT Discharge Recommendations SNF Rehab Transportation Needs at Discharge Wheelchair/Cabulance
--- NOTE | 2023-12-26 12:37 | ST.IPDYTX ---
Visit Care Team Role Provider Type Nia Marcano DO Primary Care Provider Non-Staff Specialty: Internal Medicine Address: [address] [facility], [place], [address] Email: Mariusz Mendoza MD Other Providers Physician Specialty: Orthopedics Orthopedic Surgery Address: [address] [place] [address], [address] Email: [email or web address] Emergency Provider Physician Referring Provider Specialty: Emergency Medicine Address: [address] [place] [address], [address] Email: [email or web address] Nguyen MD Admit Provider Physician Attending Provider Specialty: Internal Medicine Address: [address] [place] [address] Fax: Email: [email or web address] Dysphagia Treatment [employer] Dysphagia Treatment Start: 12/25/23 10:23 Freq: Status: Active Protocol: Document 12/26/23 12:28 MA (Rec: 12/26/23 12:37 MA [id number]) Dysphagia Treatment Session Time Visit Start Time 12:00 Visit Stop Time 12:20 Total Visit Minutes 20 Setting Assessment Location Acute Care Patient Information Identification Type ID Wristband Subjective Observations Pt sitting upright in chair in room with lunch tray in front of her on tray table. She was oriented to self and stated she was in a hospital, however unable to state what city. Treatment Liquids Trialed Thin (IDDSI 0) Solids Trialed Purred (IDDSI 4),Soft & Bite- sized (IDDSI 6) Administration Type Self-Feeding Oral Strategies Upright at 90 degrees Pharyngeal Strategies Small Bites and Sips Treatment Activities Therapeutic PO trials, cues to utilize swallow strategies such as slow rate and small bites The IDDSI Framework Protocol: IDDSI.[address] of Improvement [address] assessed swallow function with therapeutic PO trials of soft solids and pureed solids and thin liquids via straw/cup in order to determine safest and most efficient least restrictive. Pt consumed chicken cut into small pieces with gravy, chopped green beans and yogurt with blueberries and 4 oz of thin water via cup/straw. Pt fed self, however benefited from verbal cues to continue to eat d/t her taking 1 bite and then stopping. For soft solids , she exhibited adequate bite size/rate, prolonged mastication however adequate bolus formation, extended ap transport, piecemeal deglutition, mod diffuse oral stasis, no overt s/s of aspiration. She demonstrated impulsivity 1x characterized by her putting several bites at a time in her mouth. ST provided cues and education on importance of taking small bites and going slow, however unable to determine if she will be able to independently carry over strategies d/t dx of dementia. Pt will benefit from distant/close supervision during meals to assist with eating and to provide safe swallow cues of small bites and slow rate. For thin liquids Pt demonstrated no overt s/s of aspiration. ST recommends continuation of IDDSI 6/IDDSI 0 with safe swallowing strategies in place . Pt may benefit from supplemental nutrition, such as Ensure, d/t poor intake and in order to meet primary nutrition/hydration needs. ST to discharge patient at this time, however recommendation for a new speech eval order if increase in swallow difficulties arise. Recommendations Recommendations Continue Current Diet Liquids Order Thin (IDDSI 0) Diet Order Soft & Bite-sized (IDDSI 6) Medication Recommendations Crushed in Carrier Additional Dietary Needs Single Sips,Reminders to Use Strategies Aspiration Precautions Recommended Precautions Small Bites/Sips Treatment Plan Appropriate for Continued Therapy No
--- NOTE | 2023-12-26 12:49 | OT.IPNOTE ---
Pt asleep and just helped back to bed per nursing.
--- NOTE | 2023-12-26 13:02 | DIET.CONS ---
Dietary Consultation Note Admission Date: 12/24/2023 21:15 Assessment: 73 y F admitted after multiple falls. Nutrition screened for low MNA. Attempted visit with in room this morning, working with other healthcare team members x2. Chart reviewed. No recent weight hx available per chart. Low po intakes noted, ST noted pt may benefit from ONS d/t to poor intake. Ht: 157.48 cm Wt: 74 kg BMI: 30.3 UBW: no recent wt hx Last BM: () MNA: 9 Haroon Score: 19 Diet: 12/25/23 Breakfast Heart Healthy Diet Diet Modifications: 12/25/23 Lunch Dysphagia Diet Diet Modifications: Food Texture: Level 6-Soft & Bite-sized Liquid Consistency: Level 0 - Thin Nutrition Percent Meal Consumed 15 12/26/23 12:37 Percent Meal Consumed 50% 12/26/23 09:46 Labs: RBC 3.72 X10^6/uL (4.0-5.2) L 12/25/23 04:58 Hgb 12.0 g/dL (12.0-16.0) 12/25/23 04:58 Hct 34.8 % (36-46) L 12/25/23 04:58 Creatinine 0.59 mg/dL (0.52-1.04) 12/25/23 04:58 Lactate 0.9 mmol/L (0.7-2.1) 12/24/23 18:04 Nutrition Diagnosis: Inadequate oral intake r/t to decreased ability to consume adequate intake in setting of dementia as evidenced by PO intakes 50% or less. Interventions: 1. Ensure BID EER: 5735-8513 kcals (20-25 kcals/kg per BMI) 65-75 g protein (1 g/kg) Monitoring/Evaluations: po intake, ons tolerance Electronically Signed by: Arlette Aguilar 12/26/23 13:02 Clinical Diet[address] [address]
--- NOTE | 2023-12-26 13:15 | CM.DANOTE ---
Initial DCP Assessment Visit Note Reviewed EMR and team rounds for status updates. Met with pt's spouse at bedside to introduce self and role, pt was found sleeping upright in the recliner, appearing comfortable with no s/s of distress. Pt lives with her spouse at home in their own home, he is at this time her sole caregiver. Spouse did request community referral information for hiring in-home caregivers for when pt is discharged from skilled rehab. Payor: Medicare Attending: Dr. Mendoza Pt is a 73 year-old F who presented to the ED last evening following several days of GLF's. She fell about a week ago, saw her PCP for lower back pain, which lasted throughout the week, followed by 2-more falls over the last 2-days. Ed x-ray imaging showed a lumbar fracture, which is deemed non-surgical during this admission. Dr. Stinson was consulted and recommended she f/u with him in 4-weeks post discharge for repeat imaging. Skilled Rehab is being recommended for d/c. Called [facility] for referral, they are reviewing. Pt will be ready for d/c to SNF tomorrow, 12/26. Discussed a plan with pt's spouse to update him in the am tomorrow and to also provide home caregiver agency information for when pt returns home from rehab. DCP will continue to follow and assist with any further evolving needs and transition to [facility]. Discharge Planning/Care Management Advanced directive, confirm from FAMILY Start: 12/25/23 15:09 Freq: Q24H Status: Complete Protocol: Document 12/25/23 15:09 CM (Rec: 12/25/23 15:47 CM [id number]) Advance Directive, confirm on record Time 15:47 Person contacted Spouse Copy received Yes Advanced directive available on record Yes Document 12/26/23 08:00 CM (Rec: 12/26/23 11:29 CM [id number]) Advance Directive, confirm on record Time 15:47 Person contacted Spouse Copy received Yes Advanced directive available on record Yes CM Discharge Assessment Start: 12/26/23 13:07 Freq: Status: Active Protocol: Document 12/26/23 13:07 DPL (Rec: 12/26/23 13:14 DPL [id number]) Discharge Planning Assessment Assigned Engineering Technology Instructor NIK Lua Advance Directives? Yes Advance Directives on File No History Provided By Significant Other,Medical Record Expected Length of Stay 3 Has Patient been admitted in last 30 No days? Prior Living Arrangements House Household Members spouse Type of transporation used prior to Relies on Others admit Independent with ADL's No: Pt has progressive, late- stage dementia. Is patient alert and oriented? No Needs Assistance With Bathing,Grooming,Meal Prep, Toileting,Managing Medications ,Home Chores / Shopping Caregiver for Another No DME Already Rented / Owned Bath Bench,Elevated Toilet Seat,FWW / Walker Patient/Family Preference Custodial Facility Barriers to Discharge No Discharge Plan Custodial Facility Community Services Physical Therapy,Occupational Therapy Transportation Arrangement Facility Referrals Initiated Custodial If patient plan is SNF: Has PASSR been Yes completed? Medicare Choice List Provided Yes Medicare choice list reviewed on family electronic tablet with SNF/HH Preference [facility] Rehab Has Agency SNF been contacted Yes Whiteboard Updated in Patient Room with Yes name and ext. # of Engineering Technology Instructor Review Status In Process Please Provide Date Initial DC 12/26/23 Assessment Was Performed
--- NOTE | 2023-12-26 14:56 | CM.DPC ---
DCP Update Received call from [facility], they can accept pt for SNF rehab placement, will plan to transport her tomorrow at 1:00pm. [facility]EEPER will assist with her transition tomorrow and fax d/c clinicals, etc. Notified her of plan.
--- NOTE | 2023-12-26 16:15 | OT.IP.TRT ---
Current Diagnoses Hypothyroidism, unspecified (12/24/23) Hypo-osmolality and hyponatremia (12/24/23) Unspecified fracture of first lumbar vertebra, initial encounter for closed fracture (12/24/23) Occupational Therapy Treatment Note M2 OT-IP Current Condition Start: 12/25/23 15:57 Freq: Status: Active Protocol: Document 12/25/23 15:57 [facility] (Rec: 12/25/23 16:19 [facility] [id number]) Occupational Therapy Current Condition Current Condition Evaluation Date 12/25/23 Treatment Diagnosis Closed L1 vertebral fracture Diagnosis Onset Date 12/24/23 Post Operative Precautions Lumbar Precautions Log Roll,No Twisting,Limit Bending,Lifting Restriction of 10 lbs,Gait Belt above Incisional Area Other Precautions TLSO when up out of bed. M3 OT- IP Subjective and Pain Start: 12/25/23 15:57 Freq: Status: Active Protocol: Document 12/26/23 16:38 [facility] (Rec: 12/26/23 16:44 [facility] [id number]) OT- Subjective Occupational Therapy Visit Type Type Treatment Note Visit Start Time 16:15 Visit Stop Time 16:35 Occupational Therapy Visit Comments Patient Comments Pt not waning to get up but able to encourage her to brush her teeth. Patient/Caregiver Goals Pt's wants pt to go to skilled rehab. OT Pain Assessment Pain When Pain Assessed During Mobility Pain Present Pain Present Pain Reported M4 OT- IP ADL's Start: 12/25/23 15:57 Freq: Status: Active Protocol: Document 12/26/23 16:38 [facility] (Rec: 12/26/23 16:44 [facility] [id number]) OT ADL-Grooming General Evaluation Grooming Ability Standby Assistance Areas Needing Assistance Retrieving/Set-up of Grooming Items Comments OT Grooming Comments Pt able to brush her hair after handing her the brush. OT ADL-Oral Care General Eval Oral Care Ability Standby Assistance Areas of Assistance Retrieving/Set-Up of Items Comments Oral Care Comments Pt needing vc to sequence through the task to brush her teeth. OT ADL-Dressing Comments OT Dressing Comments Not performed. OT ADL-Toileting Comments OT Toileting Comments Not performed. OT ADL-Bathing Comments OT Bathing Comments Not performed. M5 OT- IP IADL's Start: 12/25/23 15:57 Freq: Status: Active Protocol: Document 12/25/23 15:57 [facility] (Rec: 12/25/23 16:19 [facility] [id number]) OT-Instrumental Activities of Daily Living Home Safety Awareness Awareness of Need for Assistance at Home Decreased Awareness Ability to Problem Solve Emergency Unable to Problem Solve Situations Medication Management Medication Management Caregiver Administers Money Management Money Management Caregiver Provides Assistance Meal Preparation Meal Preparation Caregiver Provides Assist Automatic Buffing Wheel Former Automatic Buffing Wheel Former Caregiver Provides Assist M6 OT- IP Functional Cognition Start: 12/25/23 15:57 Freq: Status: Active Protocol: Document 12/26/23 16:38 [facility] (Rec: 12/26/23 16:44 [facility] [id number]) Cognitive Factors Limiting Selfcare Function Cognitive Ability Level of Alertness Alert Patient Orientation Name Attention Span Ability Capable of Focused Attention, Unable to Sustain Attention Ability to Follow Commands Able to Follow One Step Commands with Increased Time, Able to Follow One Step Commands with Repetition Memory Description Short Term Impaired,Working Impaired Cognitive Comments Cognitive Assessment Comments Pt not able to recall her back precautions but able to recall after repetitive education. Pt needing cues to help sequence through task or grooming and oral care needs. M8 OT- IP Objective Assessments Start: 12/25/23 15:57 Freq: Status: Active Protocol: Document 12/25/23 15:57 [facility] (Rec: 12/25/23 16:19 [facility] [id number]) OT Strength Comments Strength Comments Not able to fully assess at least 3+/5. OT- Coordination Assessment Comments Coordination Comments Tremors in her left hand noted . M9 OT- IP Assessment and Plan Start: 12/25/23 15:57 Freq: Status: Active Protocol: Document 12/26/23 16:38 [facility] (Rec: 12/26/23 16:44 [facility] [id number]) OT Summary Assessment and Plan Potential Rehabilitation Potential Fair Analytic Complexity at Evaluation Moderate Summary OT Impairments Pain,Strength,Balance, Functional Cognition, Functional Mobility,Self- Feeding,Grooming,Dressing, Toileting,Bathing,Toilet Transfers,Shower Transfers, Activity Tolerance Progress Towards Goals Slow Progress due to Pain,Slow Progress due to Medical Issues,Slow Progress due to Activity Tolerance,Slow Progress due to Cognition Assessment Summary Per pt's looking to go to skilled rehab tomorrow. Goals Self-Feeding Goal Standby Assistance Grooming Goal Standby Assistance Dressing Goal Minimal Assistance Toileting Goal Standby Assistance Bathing Goal Minimal Assistance Toilet Transfer Goal Standby Assistance Shower Transfer Goal Standby Assistance Patient/Caregiver Education Goal Demonstrate Post-Op Precautions,Caregiver Independent Assisting Patient Days to Meet Goals 15 Frequency of Treatment Frequency Of Treatment Once a Day Treatment Plan OT Treatment Plan ADL Training,Functional Mobility,Patient/Family Education,Discharge Planning Other Treatment Recommendations and Next Standing ADL's Treatment Focus Discharge Recommendations OT Discharge Recommendations SNF Rehab Transportation Needs at Discharge Wheelchair/Cabulance
--- NOTE | 2023-12-26 17:35 | PM.CN ---
History of Present Illness Consult details Chief complaint: GLF last sunday back injury, no thinners Narrative: Brief phone note. called. Her main reason for evaluation 12/01/22 was cough with posttussive emesis. At that time post-nasal drip (MRI brain with sinusitis), GERD, and aspiration (RML and RLL scarring from recurrenet aspiration given difficulty following through with dysphagia precautions given her dementia). Okay to stop advair given lack of benefit. Reports an additional GI medicine added was helpful. Continue GERD, postnasal drip and aspiration treatments. We also reviewed she has not had nocturnal hypoxemia while in hospital. Underwent sleep apnea evaluation with limited sleep but no obvious sleep apnea. If saturations > 90%, okay to discharge without supplemental oxygen. EVen if brief desaturations at night, not life threatening. Finally her dyspnea with exertion which is unlikely to be related to any underlying lung disease but rather deconditioning. Advised to call when patient discharging from SNF to setup pulmonary follow-up. Meds Home Medications and Allergies Home Medications Medication Instructions Recorded Confirmed Type aspirin 81 mg tablet,delayed 81 mg PO DAILY 12/14/20 12/24/23 History release calcium carbonate 600 mg-vitamin 1 cap PO BID 12/14/20 12/25/23 History D3 10 mcg (400 unit) capsule pantoprazole 40 mg tablet,delayed 40 mg PO BID 12/14/20 12/25/23 History release potassium chloride 10 mEq 10 meq PO DAILY 12/14/20 12/24/23 History capsule,extended release hydrocortisone 10 mg tablet See Rx Instructions PO .COMPLEX 01/20/21 12/24/23 Rx #225 tabs simvastatin 20 mg tablet See Rx Instructions .Route 06/15/21 12/24/23 Rx .COMPLEX #90 tabs levothyroxine 75 mcg tablet See Rx Instructions .Route 07/08/21 12/25/23 Rx .COMPLEX #30 tabs ascorbic acid (vitamin C) 1,000 mg 500 mg PO DAILY 03/15/22 12/24/23 History tablet hydrocortisone sod succinate 100 200 mg IM Q12H 03/15/22 12/25/23 History mg/2 mL solution for injection desmopressin 0.1 mg tablet 0.3 mg PO BEDTIME 12/24/23 12/25/23 History desmopressin 0.2 mg tablet 0.2 mg PO 09,15 12/24/23 12/25/23 History hyoscyamine sulfate 0.125 mg tablet 0.125 mg PO BID 12/24/23 12/24/23 History donepezil 5 mg tablet 10 mg PO QPM 12/25/23 12/25/23 History fluticasone 250 mcg-salmeterol 50 1 ea inhalation DAILY 12/25/23 12/25/23 History mcg/dose blistr powdr for inhalation Allergies Allergy/AdvReac Type Severity Reaction Status Date / Time phenobarbital AdvReac Unknown Rash Verified 03/15/22 14:41 Exam Vital Signs (past 8 hours): - 12/26/23 09:45 Temperature 97.3 F L Pulse Rate 79 Respiratory Rate 18 Blood Pressure 131/73 Pulse Oximetry 93 Oxygen Flow Rate 0 Oxygen Delivery Method Room Air Oxygen Flow Rate 0 Objective Labs 12/25/23 04:58 12/25/23 04:58 [facility] Medical History Thoracic region somatic dysfunction Cervical somatic dysfunction Stiff back Stiff neck Cranial somatic dysfunction Chronic cough (~2011) Stroke (~2014) Osteoporosis Foot pain (~2019) Measles Chicken pox Hearing loss (~1999) History of urinary incontinence (~2016) Fecal incontinence (~2018) Hemorrhoid Balance problem Hypothyroidism (acquired) (~2000) Diabetes insipidus (~1999) Nocturnal hypoxemia Sarcoidosis (~2011) Surgical History History of craniotomy Anesthesia History of parathyroidectomy (~2017) History of cholecystectomy (~2014) History of partial hysterectomy (~1972) Cataracts, bilateral (~2019) History of craniopharyngioma (~1988) Family History Father Diabetes mellitus History of heart disease Hypertension History of kidney problems Mother Cancer Mental health problem Stroke Sister Hypertension Grandmother History of heart disease Mental health problem Brother Mental health problem Social History household members: spouse Tobacco & Substance Use Smoking Status: Former smoker alcohol intake: never substance use type: does not use
[2023-12-26 20:15] VITALS: BP 149/78; PULSE 79; RESP 19; TEMP 36.2; O2SAT 97
[2023-12-26] MEDS: HYDROCORTISONE 10 MG TABLET 5 MG PO (20:59)
[2023-12-26] MEDS: SENNOSIDES 8.6 MG TABLET 17.2 MG PO (21:00)
[2023-12-26] MEDS: ATORVASTATIN 20 MG TABLET 10 MG PO (21:01)
[2023-12-27] MEDS: LEVOTHYROXINE 75 MCG TABLET PO (06:23)
[2023-12-27 08:00] VITALS: BP 125/65; PULSE 77; RESP 16; TEMP 36.2; O2SAT 96
--- NOTE | 2023-12-27 08:13 | PM.PN.1 ---
Subjective Subjective Interval history: Pulmonary consult on December 26 with general recommendations regarding oxygen at night. Exam Vital Signs (past 8 hours): - 12/27/23 04:27 Oxygen Flow Rate 0 Oxygen Delivery Method Room Air Oxygen Flow Rate 0 Narrative Exam Narrative: Objective Labs 12/25/23 04:58 12/25/23 04:58 [facility] Medical History Thoracic region somatic dysfunction Cervical somatic dysfunction Stiff back Stiff neck Cranial somatic dysfunction Chronic cough (~2011) Stroke (~2014) Osteoporosis Foot pain (~2019) Measles Chicken pox Hearing loss (~1999) History of urinary incontinence (~2016) Fecal incontinence (~2018) Hemorrhoid Balance problem Hypothyroidism (acquired) (~2000) Diabetes insipidus (~1999) Nocturnal hypoxemia Sarcoidosis (~2011) Surgical History History of craniotomy Anesthesia History of parathyroidectomy (~2017) History of cholecystectomy (~2014) History of partial hysterectomy (~1972) Cataracts, bilateral (~2019) History of craniopharyngioma (~1988) Family History Father Diabetes mellitus History of heart disease Hypertension History of kidney problems Mother Cancer Mental health problem Stroke Sister Hypertension Grandmother History of heart disease Mental health problem Brother Mental health problem Social History household members: spouse Smoking Status: Former smoker alcohol intake: never substance use type: does not use Assessment & Plan Assessment & Plan narrative: 1. L1 burst fracture, present on admission and active. 2. Frequent falls, present on admission and active. 3. Diabetes insipidus, present on admission and stable. 4. Chronic adrenal insufficiency, present on admission and stable. 5. Dementia, present on admission and stable. 6. Hypothyroidism (pituitary), present on admission and stable. 7. Hyperlipidemia, present on admission and stable. IMAGING: -CT scan: 60% compression deformity at L1 with fracture lucencies in the anterior, middle and posterior thirds of the vertebral body. There is moderate spinal stenosis secondary to retropulsion the posterior aspect of the superior endplate as well as causing compromise of the right lateral recess. PLAN: -Ortho consult in chart - rec TLSO and WBAT -PT/OT consult -Routine home meds - Na is appropiate on desmopressin therapy. Monitor Na. -Placement, SNF likely is needed.
[2023-12-27 08:15] VITALS: O2SAT 96
[2023-12-27] MEDS: ENOXAPARIN 40 MG/0.4 ML SYRINGE SUBCUT (08:53)
[2023-12-27] MEDS: LIDOCAINE 5% PATCH 1 EACH TOP (08:53)
[2023-12-27] MEDS: ACETAMINOPHEN 325 MG TABLET 650 MG PO (08:54)
[2023-12-27] MEDS: PANTOPRAZOLE DR 20 MG TABLET PO (08:55)
[2023-12-27] MEDS: POTASSIUM CHLORIDE 10 MEQ TAB PO (08:55)
[2023-12-27] MEDS: HYDROCORTISONE 10 MG TABLET PO (08:58)
[2023-12-27] MEDS: SODIUM CHLORIDE 0.9% FLUSH 10 ML IV (08:59)
--- NOTE | 2023-12-27 10:25 | CM.DPC ---
DCP Cont. Reviewed EMR and team rounds for status updates. Plan is for pt to d/c to [facility] today at 1:30pm. Spouse is aware. Will fax d/c clinicals and [facility]. No further DCP needs identified at this time.
--- NOTE | 2023-12-27 10:34 | PM.DS.1 ---
History of Present Illness History of Present Illness Chief complaint: GLF last sunday back injury, no thinners Narrative: From H&P: The pt is a debilitated 73 yo with advanced dementia and chronic back problems with multiple surgeries who fell at home today and was unable to get up off the floor so [facility] called 911 and she was brought to the ER. She states that she falls at home about weekly despite having a front wheeled walker. She states that the pain is a 10 out of 10 during my interview but denies any pain radiating to the legs, no numbness in the legs. There was no LOC, head trauma, it was reported that she has some dysphagia but it is only when swallowing pills. Pt's is sole caregiver. She has history of chronic diabetes insipidus and takes desmopressin and on hydrocortisone for adrrenal insuffciency secondary to craniopharyngioma resection and radiation therapy. Also has past hx of CVA with left eye droop since then. Discharge Providers Provider Date of admission: 12/24/23 21:15 Discharge Date: 12/27/23 Primary care physician: Nia Marcano DO Consults: 12/24/23 20:45 Consult to Orthopedic Surgery Stat Comment: Consulting Provider: Mariusz Mendoza Reason for consultation: L1 fracture Has provider been notified: Yes 12/24/23 22:11 Consult to Occupational Therapy Evaluate & Treat Comment: Physician Instructions: Evaluate and treat Consult to Physical Therapy Evaluate & Treat Comment: Physician Instructions: Evaluate and Treat 12/24/23 22:12 Consult to Speech Therapy Evaluate & Treat Comment: Physician Instructions: Evaluate and treat Discharge provider: Raffaele Nolasco MD Summary Hospital Course Discharge Diagnosis: 1. L1 burst fracture, present on admission and active. 2. Frequent falls, present on admission and active. 3. Diabetes insipidus, present on admission and stable. 4. Chronic adrenal insufficiency, present on admission and stable. 5. Dementia, present on admission and stable. 6. Hypothyroidism (pituitary), present on admission and stable. 7. Hyperlipidemia, present on admission and stable. Hospital Course: This is a 73-year-old female with dementia and chronic back pain who had a fall and was able to get up. She was brought to the hospital where she was found to have a compression fracture. She was a remote history of craniopharyngioma resection and radiation with consequent diabetes insipidus and adrenal insufficiency. She has a chronic left eye droop. Imaging with CT revealed a 60% compression deformity at L1, with moderate spinal stenosis secondary to retropulsion. Orthopedics was consulted and recommended TLSO and weight-bearing as tolerated. Sodium was monitored in the usual medications were given. Her medication list was reviewed with her on the day of discharge. She will his hydrocodone for pain. In the day of discharge she was felt to be stable for transfer to [facility]. Status at Discharge Cognitive/behavioral status at discharge: at baseline, confused Functional status at discharge: uses cane/walker Overall status at discharge: patient is progressing back to baseline Time Spent with Patient Time spent: Greater than 30 minutes Exam Vital Signs (past 8 hours): - 12/27/23 04:27 12/27/23 07:00 12/27/23 08:00 Temperature 97.2 F L Pulse Rate 77 Respiratory Rate 16 Blood Pressure 125/65 Pulse Oximetry 96 Oxygen Delivery Method Room Air Oxygen Flow Rate 0 0 12/27/23 08:15 Temperature Pulse Rate Respiratory Rate Blood Pressure Pulse Oximetry 96 Oxygen Delivery Method Room Air Oxygen Flow Rate 0 Oxygen Delivery Method Room Air Oxygen Flow Rate 0 Narrative Exam Narrative: NAD, alert and oriented. Slow and soft speech. Lungs are clear, normal rate and effort. Heart is regular, no murmur gallop or rub. Abdomen is soft, non distended. Extremities are free of edema. Objective Imaging Multiple studies:: Radiologist's impression: PROCEDURE: CT THORACIC SPINE WO CON INDICATIONS: L1 burst fracture TECHNIQUE: Noncontrast 3 mm thick sections acquired through the region of interest in the thoracic spine. Sagittal and coronal reformats were then constructed. For radiation dose reduction, the following was used: automated exposure control. COMPARISON: [facility], CT, CT LUMBAR SPINE WO CON, 12/24/2023, 20:49. FINDINGS: Image quality: Excellent. Bones: There is normal overall bony alignment. No acute vertebral body compression fractures. No suspicious sclerotic or lytic bony lesions. Central spinal canal is of normal overall caliber. Multilevel degenerative disc space narrowing. Soft tissues: No paravertebral masses or hematomas. Visualized posteromedial lungs appear clear. Mediastinal calcified lymph nodes are present related to prior granulomatous exposure. IMPRESSION: Multilevel degenerative changes visualized fracture. PROCEDURE: CT LUMBAR SPINE WO CON INDICATIONS: L1 burst fracture TECHNIQUE: Noncontrast 3 mm thick sections acquired from the T12 level to the sacrum. Sagittal and coronal reformats were constructed. For radiation dose reduction, the following was used: automated exposure control. COMPARISON: [facility], CR, XR LUMBAR SPINE 2-3V, 12/24/2023, 17:30. [facility], CR, XR LUMBAR SPINAL PUNCTURE DIAGNOSTIC, 04/19/2023, 16:33. FINDINGS: Image quality: Excellent. Bones: There is a 68% compression deformity at L1. Fracture lucencies are present in the anterior middle and posterior 3rd of the vertebral body. There is appearance fracture lucency extending in to the distal aspect the right pedicle. There is mild appearance of retropulsion the posterior aspect of the superior vertebral endplate causing moderate spinal stenosis. There is also compromise of the right lateral recess secondary to fracture fragment. Grade 1/2 anterolisthesis L5 on S1 with bilateral L5 pars defect. Multilevel disc bulges are present the lumbar spine. Multilevel foraminal narrowing is present throughout the lumbar spine severe bilaterally at L5-S1 most prominent on the left with flattening of the L5 nerve roots. Multilevel facet and ligamentum flavum hypertrophy are present. Soft tissues: No retroperitoneal masses or hematomas. Visualized aorta is normal in caliber. IMPRESSION: 60% compression deformity at L1 with fracture lucencies in the anterior, middle and posterior thirds of the vertebral body. There is moderate spinal stenosis secondary to retropulsion the posterior aspect of the superior endplate as well as causing compromise of the right lateral recess. CT brain negative, chest x-ray reveals a right infrahilar opacity and fibrotic changes, sacral x-rays reveal degenerative changes and no fracture. Labs 12/25/23 04:58 12/25/23 04:58 [facility] Medical History Thoracic region somatic dysfunction Cervical somatic dysfunction Stiff back Stiff neck Cranial somatic dysfunction Chronic cough (~2011) Stroke (~2014) Osteoporosis Foot pain (~2019) Measles Chicken pox Hearing loss (~1999) History of urinary incontinence (~2016) Fecal incontinence (~2018) Hemorrhoid Balance problem Hypothyroidism (acquired) (~2000) Diabetes insipidus (~1999) Nocturnal hypoxemia Sarcoidosis (~2011) Surgical History History of craniotomy Anesthesia History of parathyroidectomy (~2017) History of cholecystectomy (~2014) History of partial hysterectomy (~1972) Cataracts, bilateral (~2019) History of craniopharyngioma (~1988) Family History Father Diabetes mellitus History of heart disease Hypertension History of kidney problems Mother Cancer Mental health problem Stroke Sister Hypertension Grandmother History of heart disease Mental health problem Brother Mental health problem Social History household members: spouse Smoking Status: Former smoker alcohol intake: never substance use type: does not use Discharge Assessment & Plan Assessment and Plan Assessment: 1. L1 burst fracture, present on admission and active. 2. Frequent falls, present on admission and active. 3. Diabetes insipidus, present on admission and stable. 4. Chronic adrenal insufficiency, present on admission and stable. 5. Dementia, present on admission and stable. 6. Hypothyroidism (pituitary), present on admission and stable. 7. Hyperlipidemia, present on admission and stable. Plan of Treatment: Transfer to long-term facility for ongoing PT and OT. TLSO and weight-bearing as tolerated. Hydrocodone as needed for pain. Discharge Plan Discharge Plan Patient Disposition: SNF Transfer to: [facility] Under care of provider: Dr Whipple. Provider Discharge Comment: Stable for discharge to long-term feels silly for ongoing treatment of compression fracture pain and mobility. Discharge orders & Medications Prescriptions: New hydrocodone-acetaminophen 5-325 mg Tablet 1 tab PO Q4H PRN (Reason: Pain, Moderate (4-6)) Qty: 20 0RF Continued simvastatin 20 mg tablet See Rx Instructions .ROUTE .COMPLEX Qty: 90 0RF Dose Instruction: TAKE ONE TABLET BY MOUTH AT BEDTIME *STOP OR CALL FOR UNEXPLAINED MUSCLE ACHES OR WEAKNESS* Rx Instructions: TAKE ONE TABLET BY MOUTH AT BEDTIME *STOP OR CALL FOR UNEXPLAINED MUSCLE ACHES OR WEAKNESS* levothyroxine 75 mcg tablet See Rx Instructions .ROUTE .COMPLEX Qty: 30 0RF Dose Instruction: TAKE ONE TABLET BY MOUTH ONE TIME DAILY Rx Instructions: TAKE ONE TABLET BY MOUTH ONE TIME DAILY potassium chloride 10 mEq capsule, extended release 10 meq PO DAILY pantoprazole 40 mg tablet,delayed release (DR/EC) 40 mg PO BID aspirin 81 mg tablet,delayed release (DR/EC) 81 mg PO DAILY calcium carbonate-vitamin D3 600 mg(1,500mg) -400 unit capsule 1 cap PO BID desmopressin 0.2 mg tablet 0.2 mg PO 09,15 hyoscyamine sulfate 0.125 mg Tablet 0.125 mg PO BID desmopressin 0.1 mg tablet 0.3 mg PO BEDTIME fluticasone propion-salmeterol 250-50 mcg/dose blister with device 1 ea inhalation DAILY donepezil 5 mg tablet 10 mg PO QPM ascorbic acid (vitamin C) 1,000 mg tablet 500 mg PO DAILY Changed hydrocortisone 10 mg tablet See Rx Instructions PO .COMPLEX Qty: 30 1RF Rx Instructions: PO; 10mg am and 5mg pm Discontinued hydrocortisone sod succinate 100 mg/2 mL recon soln 200 mg IM Q12H Medication counseling provided by Pharmacist: No Follow up/Referrals: Nia Marcano DO [Primary Care Provider] - Emil Stinson MD [Physician] - 1 Month (F/u in 4 weeks for repeat imaging; contact office sooner if pt develops LE weakness.) Discharge Health Status Multidrug resistant organism: No MDRO Diet/Activity/Treatments Diet: Regular Liquid consistency: Normal/Thin Food texture: Regular Activity: TLSO brace when upright or working with PT. [facility] Rehab type: Physical therapy and Occupational therapy Visit Report/Discharge Packet Stand Alone Forms: Patient Portal/API Discharge Data Primary Care Provider: Nia Marcano
--- NOTE | 2023-12-27 12:51 | PC.NURSE ---
Addendum entered by Aria Mccloud R.N. 12/27/23 12:55: Pt's home meds from pharmacy sent with packet to [facility]. Original Note: Pt is packed up and ready for DC to [facility]. IV removed. Called report to Nusrat RN answered all questions, waiting for transport to arrive and patient will be DC via wheelchair with all belongings.
--- NOTE | 2023-12-27 13:29 | PC.NURSE ---
Pt out via w/c by [employer] personnel with all belongings.
== END 2023-12-27 13:30 | DRG 552 ==
LOC: ED 21:14 → AC 12-25 00:41
PROVIDERS: Student in an Organized Health Care Education/Training Program; Admitting Provider Internal Medicine; Emergency Provider Emergency Medicine; PCP Student in an Organized Health Care Education/Training Program; Referring Provider Emergency Medicine; Visit Provider Internal Medicine
DX: S32.011A Stable burst fracture of first lumbar vertebra, initial encounter for closed fracture (principal); E23.2 Diabetes insipidus; E27.40 Unspecified adrenocortical insufficiency; E03.9 Hypothyroidism, unspecified; F03.90 Unspecified dementia, unspecified severity, without behavioral disturbance, psychotic disturbance, mood disturbance, and anxiety; E78.5 Hyperlipidemia, unspecified; T66.XXXS Radiation sickness, unspecified, sequela; W18.30XA Fall on same level, unspecified, initial encounter; Z87.891 Personal history of nicotine dependence; Z91.81 History of falling; Z86.69 Personal history of other diseases of the nervous system and sense organs
CPT/HCPCS: 36415; 70450; 71046; 72100; 72128; 72131; 72220; 80048; 80053; 81001; 82550; 83605; 83690; 83735; 84100; 84484; 85025; 87086; 92526; 92610; 93005; 96374; 97163; 97165; 97530; 97535; 99284; 99285; J1650; J2270; J2405

== ENCOUNTER → 2024-05-28 10:19 | Outpatient (CLI) | payer MEDICARE, OTHER, SELFPAY ==
[2023-12-25 14:57] VITALS: BMI 30.3
[2024-05-28 12:48] LABS: Albumin 3.8 g/dL (3.5-5.0); BUN Creatinine Ratio 13.8 (6-22); Blood Urea Nitrogen 11 mg/dL (7-17); Calcium 9.4 mg/dL (8.4-10.2); Carbon Dioxide 30 mmol/L (22-32); Chloride 95 mmol/L (98-107); Estimated Glomerular Filt Rate > 60 mL/min (>60); Glucose 95 mg/dL (80-110); HEMOLYSIS < 15 (0-50); Phosphorous 5.1 mg/dL (2.8-4.1); Potassium 3.6 mmol/L (3.4-5.1); Sodium 129 mmol/L (137-145)
[2024-05-28 12:59] LABS: Vitamin D 25 Hydroxy (D3) 40.6 ng/mL (30.0-100.0)
[2024-05-28 22:15] LABS: Free T4, Direct Thyroxine 1.53 ng/dL (0.78-2.19)
[2024-05-28 22:33] LABS: Thyroid Stimulating Hormone < 0.015 uIU/mL (0.47-4.68)
== END ==
LOC: LAB 10:21
PROVIDERS: PCP Student in an Organized Health Care Education/Training Program; Referring Provider Student in an Organized Health Care Education/Training Program; Visit Provider Student in an Organized Health Care Education/Training Program
DX: E83.51 Hypocalcemia (principal); E23.0 Hypopituitarism
CPT/HCPCS: 36415; 80069; 82306; 84439; 84443

== ENCOUNTER → 2024-07-22 09:46 | Outpatient (CLI) | payer MEDICARE, OTHER, SELFPAY ==
[2023-12-25 14:57] VITALS: BMI 30.3
[2024-07-22 11:33] LABS: Albumin 3.7 g/dL (3.5-5.0); BUN Creatinine Ratio 13.9 (6-22); Blood Urea Nitrogen 11 mg/dL (7-17); Calcium 9.2 mg/dL (8.4-10.2); Carbon Dioxide 28 mmol/L (22-32); Chloride 99 mmol/L (98-107); Estimated Glomerular Filt Rate > 60 mL/min (>60); Glucose 85 mg/dL (80-110); HEMOLYSIS < 15 (0-50); Phosphorous 3.1 mg/dL (2.8-4.1); Potassium 3.5 mmol/L (3.4-5.1); Sodium 130 mmol/L (137-145)
== END ==
PROVIDERS: PCP Student in an Organized Health Care Education/Training Program; Referring Provider Student in an Organized Health Care Education/Training Program; Visit Provider Student in an Organized Health Care Education/Training Program
DX: E87.1 Hypo-osmolality and hyponatremia (principal)
CPT/HCPCS: 36415; 80069

== ENCOUNTER → 2024-10-15 17:44 | Outpatient (CLI) | payer MEDICARE, OTHER, SELFPAY ==
[2023-12-25 14:57] VITALS: BMI 30.3
[2024-10-15 18:09] LABS: Add Manual Diff / Slide Review NO; Basophils Absolute Auto 100 /uL (0-100); Basophils Percent Auto 0.8 % (0-2); Eosinophils Absolute Auto 300 /uL (0-450); Eosinophils Percent Auto 4.2 % (2-4); Hematocrit 39.2 % (36-46); Hemoglobin 13.3 g/dL (12.0-16.0); Lymphocytes Absolute Auto 1700 /uL (1100-4500); Lymphocytes Percent Auto 21.2 % (25-40); Mean Corpuscular Hemoglobin 32.9 PG (26-34); Mean Corpuscular Volume 96.8 fL (80-100); Monocytes Absolute Auto 900 /uL (0-900); Monocytes Percent Auto 11.2 % (3-14); Neutrophils Absolute Auto 4900 /uL (1500-7000); Neutrophils Percent Auto 62.6 % (50-75); Platelet Count 261 X10^3/uL (150-400); Red Blood Cell Count 4.05 X10^6/uL (4.0-5.2); Red Cell Distribution Width 13.2 % (11.6-14.8); White Blood Cell Count 7.9 X10^3/uL (4.5-11.0)
[2024-10-15 18:54] LABS: Iron 58 ug/dL (37-170)
[2024-10-15 18:55] LABS: Alanine Aminotransferase 24 IU/L (<35); Albumin Globulin Ratio 1.4 (1.0-2.8); Alkaline Phosphatase 51 U/L (38-126); Aspartate Aminotransferase 35 IU/L (14-36); BUN Creatinine Ratio 17.8 (6-22); Bilirubin Total 0.6 mg/dL (0.2-1.3); Blood Urea Nitrogen 13 mg/dL (7-17); Carbon Dioxide 22 mmol/L (22-32); Chloride 98 mmol/L (98-107); Estimated Glomerular Filt Rate > 60 mL/min (>60); Globulin 2.8 g/dL (1.7-4.1); Glucose 81 mg/dL (80-110); HEMOLYSIS < 15 (0-50); Potassium 4.2 mmol/L (3.4-5.1); Sodium 130 mmol/L (137-145); Total Protein 6.8 g/dL (6.3-8.2)
[2024-10-15 18:56] LABS: BUN Creatinine Ratio 17.6 (6-22); Blood Urea Nitrogen 13 mg/dL (7-17); Calcium 8.8 mg/dL (8.4-10.2); Carbon Dioxide 22 mmol/L (22-32); Chloride 98 mmol/L (98-107); Estimated Glomerular Filt Rate > 60 mL/min (>60); Glucose 81 mg/dL (80-110); HEMOLYSIS < 15 (0-50); Phosphorous 3.8 mg/dL (2.8-4.1); Potassium 4.2 mmol/L (3.4-5.1); Sodium 129 mmol/L (137-145)
[2024-10-15 19:12] LABS: Free T4, Direct Thyroxine 1.44 ng/dL (0.78-2.19); Vitamin D 25 Hydroxy (D3) 42.6 ng/mL (30.0-100.0)
[2024-10-15 19:28] LABS: Thyroid Stimulating Hormone < 0.015 uIU/mL (0.47-4.68)
[2024-10-15 19:29] LABS: Erythrocyte Sedimentation Rate 10 MM/HR (0-20)
[2024-10-15 19:31] LABS: Ferritin 106 ng/mL (11-264)
[2024-10-18 14:08] LABS: Hepatitis B Virus DNA HBV DNA not detected IU/mL (.)
[2024-10-20 15:09] LABS: Albumin 3.4 g/dL (2.9-4.4); Alpha-1-Globulin 0.3 g/dL (0.0-0.4); Alpha-2-Globulin 0.7 g/dL (0.4-1.0); Globulin Total 2.8 g/dL (2.2-3.9); Protein, Total 6.2 g/dL (6.0-8.5)
[2024-11-04 09:46] LABS: Bullous Pemphigoid 180 IgG AB 4
[2024-11-04 09:48] LABS: Bullous Pemphigoid 230 IgG AB 3
== END ==
PROVIDERS: PCP Student in an Organized Health Care Education/Training Program; Referring Provider Student in an Organized Health Care Education/Training Program; Visit Provider Student in an Organized Health Care Education/Training Program
DX: E03.9 Hypothyroidism, unspecified (principal); M81.8 Other osteoporosis without current pathological fracture; L29.89 Other pruritus; E23.2 Diabetes insipidus; E23.0 Hypopituitarism
CPT/HCPCS: 36415; 80053; 80069; 82306; 82728; 83516; 83540; 84155; 84165; 84439; 84443; 85025; 85651; 87517